=== PATIENT | male | born 2000 | race Caucasian/White ===

== ENCOUNTER 2024-03-29 11:20 | Outpatient (OUT) | payer BC, SELFPAY ==
--- NOTE | 2024-03-29 | XR_ITS ---
The [address] [address] Patient Name: NALDO MARQUEZ MRN: [id number] date: 2000 Sex: M Assigned Patient Location: Current Patient Location: Accession/Order Number: [id number] Exam Date: 03/29/2024 11:27 Report Date: 03/30/2024 13:23 At the request of: MEERA HEATON Procedure: XR foot JESSICA min 3V EXAMINATION: XR foot JESSICA min 3V, XR ankle JESSICA min 3V HISTORY: BILATERAL FOOT PAIN COMPARISON: No relevant comparison available. FINDINGS: RIGHT FINDINGS: BONES: Slight valgus deviation at level of ankle joint. No fracture, dislocation, bone lesion. No joint space narrowing or asymmetry of the joint spaces. SOFT TISSUES: No visible soft tissue swelling. OTHER: Negative. LEFT FINDINGS: BONES: Slight valgus deviation at level of ankle joint. No fracture, dislocation, bone lesion. No joint space narrowing or asymmetry of the joint spaces. Slightly prominent plantar arch. SOFT TISSUES: No visible soft tissue swelling. OTHER: Negative. XR/XR foot JESSICA min 3V IMPRESSION: RIGHT CONCLUSION: No acute abnormality or significant degenerative changes. LEFT CONCLUSION: No acute abnormality or significant degenerative changes. Prominent arch. Electronically authenticated by: MINDI HERNANDEZ Date: 03/30/2024 13:23
--- NOTE | 2024-03-29 | XR_ITS ---
The [address] [address] Patient Name: NALDO MARQUEZ MRN: [id number] date: 2000 Sex: M Assigned Patient Location: Current Patient Location: Accession/Order Number: [id number] Exam Date: 03/29/2024 11:21 Report Date: 03/30/2024 13:23 At the request of: MEERA HEATON Procedure: XR ankle JESSICA min 3V EXAMINATION: XR foot JESSICA min 3V, XR ankle JESSICA min 3V HISTORY: BILATERAL FOOT PAIN COMPARISON: No relevant comparison available. FINDINGS: RIGHT FINDINGS: BONES: Slight valgus deviation at level of ankle joint. No fracture, dislocation, bone lesion. No joint space narrowing or asymmetry of the joint spaces. SOFT TISSUES: No visible soft tissue swelling. OTHER: Negative. LEFT FINDINGS: BONES: Slight valgus deviation at level of ankle joint. No fracture, dislocation, bone lesion. No joint space narrowing or asymmetry of the joint spaces. Slightly prominent plantar arch. SOFT TISSUES: No visible soft tissue swelling. OTHER: Negative. XR/XR ankle JESSICA min 3V IMPRESSION: RIGHT CONCLUSION: No acute abnormality or significant degenerative changes. LEFT CONCLUSION: No acute abnormality or significant degenerative changes. Prominent arch. Electronically authenticated by: MINDI HERNANDEZ Date: 03/30/2024 13:23
== END 2024-03-29 11:21 | disposition home or self-care (01) ==
LOC: EC 11:20
PROVIDERS: Visit Provider Podiatrist Foot & Ankle Surgery
DX: M25.572 Pain in left ankle and joints of left foot (principal); M25.571 Pain in right ankle and joints of right foot
CPT/HCPCS: 73610; 73630

== ENCOUNTER 2025-02-20 12:33 | Outpatient (OUT) | payer BC, SELFPAY ==
--- OUTSIDE RECORDS SUMMARY | 2024-05-10 05:15 | XMS_ITS ---
Author Organization The [facility] in [place] Address [address] [place] [address] Care Team Providers Care Banquet Lead Name Role Phone Jenifer Swartz Primary Care Provider Raymond Mosquera [phone] Allergies Allergen (clinical drug ingredient) Drug/Non Drug Allergy documented on EMR Reaction Allergy Type Onset Date Status amoxicillin Amoxicillin hives Drug Allergy Act jannet REASON FOR VISIT -6 Week Follow Up- Medications Medication SIG (Take, Route, Fr equency, Duration) Notes Start Date End Date Status Meloxicam 15 MG 1 tablet Orally Once a day for 30 days 03/29/2024 Active Social History Tobacco Use: Social History Observation Description Date Details (start date - stop date) Never Smoker NA - NA Tobacco Control (Standard) Question Answer Notes Tobacco use: Nonsmoker Vital Signs Weight 206 lbs 05/10/2024 Height 74 in 05/10/2024 Temperature 97.6 degrees Fahrenheit 05/10/20 24 Heart Rate 94 /min 05/10/2024 BMI 26.45 kg/m2 05/10/2024 Oximetry 97.6 % 05/10/2024 Encounters Encounter Location Date Provider Diagnosis The [facility] [place] (PODIATRY) [address] [place] [address] [place] [address] 05/10/2024 Raymond Moreland Achilles tendinitis, left leg M76.62 ; Primary osteoarthritis, right ankle and foot M19.071 ; Other acquired deformities of right foot M21.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 He is doing quite well at the present time with wearing the ASO ankle brace and meloxicam as needed. He does have some calf pain and he describes it as feeling like a cramp. I believe this is secondary to his equinus versus calf strain. I recommended home stretching program and a handout was provided as well as a prescription for physical therapy.He will call for refills for meloxicam if needed and will follow-up in 3 months or as needed 05/10/2024 Primary osteoarthritis, right ankle and foot (ICD-10 - M19.071) 05/10/2024 Other acquired deformities of right foot (ICD-10 - M21.6X1) 05/10/2024 Other acquired deformities of left foot (ICD-10 - M21.6X2) Plan Of Treatment Treatment Notes Assessment Notes Achilles tendinitis, left leg Patient is a active 24-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 He is doing quite well at the present time with wearing the ASO ankle brace and meloxicam as needed. He does have some calf pain and he describes it as feeling like a cramp. I believe this is secondary to his equinus versus calf strain. I recommended home stretching program and a handout was provided as well as a prescription for physical therapy.He will call for refills for meloxicam if needed and will follow-up in 3 months or as needed Progress Notes * JIMMY GayOB:2000 (24 yo M)Acc No.[id number]:05/10/2024 Follow Up Patient: Paul LEGGETTJIMENASanford Provider: Diallo Moreland DPM, MS :2000 A ge:24 Y S ex:Male Date:05/10/2024 Address:[address] [place] [address], [id number] Pcp:Jenifer Swartz Check In:09:12 AM MUNIRCheck O ut:09:46 AM EST Subjective: * Chief Complaints: * - 6 Week Follow Up- * HPI: G eneral: Paient in office today to follow up of left achilles pain and right foot/ankle pain. Patient is c/o left calf feeling tight and achey. He c/o of right foot feeling stiff. HE is currently only using the ASO brace on his right ankle when he is playing football. He started taking the meloxicam and has has some relief of pain and swelling. He is not doing RICE therapy at home at this time. He states that hes looking for stretches to do at home rather than doing physical therapy. * Active Problem List M25.572 Pain in left ankle a nd joints of left foot Modified On:03/29/2024 Status:confirmed M25.571 Pain in right ankle and joints of right foot Modified On:03/29/2024 Status:confirmed M19.071 Primary osteoarthrit is, right ankle and foot Modified On:03/29/2024 Status:confirmed M21.6X1 Other acquired defor mities of right foot Modified On:03/29/2024 Status:confirmed Q66.89 Other specified kate enital deformities of feet Modified On:03/29/2024 Status:confirmed M21.6X2 Other acquired defor mities of left foot Modified On:03/29/2024 Status:confirmed * Medical History: * Surgical History: c lub feet tonsils * Hospitalization/Major Diagno stic Procedure: c lub feet tonsils * Family History: F ather: diagnosed with Unspecified heart disease. diabetes - grandparents, heart disease - grandmother, lung problems - grandmother. * Social History: T obacco Use: T obacco Control (Standard) T obacco use: N onsmoker * Medications: T akingMeloxicam 15 MG Tablet 1 tablet Orally Once a day Medication List reviewed and reconciled with the patientTaking Meloxicam 15 MG Tablet 1 tablet Orally Once a day Medication List reviewed and reconciled with the patient * Allergies: A moxicillin: hivesno[Allergies Verified] Objective: * Vitals: W t:206lbs, Ht: 74 in, Temp:97.6F, HR:94/min, BMI:26.45Index, Pain scale:31-10, Oxygen sat %:97.6%, Ht-cm: 187.96 cm, Wt-k.44 kg. * Examination: P odiatry Examination: SKIN: s kin intact, n o sign of infection. MUSCULOSKELETAL: N o pain on palpation. Ankle joint dorsiflexion bilaterally is to neutral but not past. Small thickening within the noninsertional area of the Achilles tendon. Hindfoot range of motion is limited bilaterally but not painful.? NEUROLOGICAL: l ight touch sensation intact, n egative tinel's sign. VASCULAR: P edal pulses palpable, C apillaryrefill is brisk to toe, D igitalhair intact. Assessment: * Assessment: 1. A chilles tendinitis, left leg - M76.62 (Primary) 2 . P rimary osteoarthritis, right ankle and foot - M19.071 3 . O ther acquired deformities of right foot - M21.6X1 4 .?Other acquired deformities of left foot - M21.6X2 Plan: * Treatment: * Procedure Codes: * * Sign off status: Completed Visit Status: C HK (Check Out) true * Provider: Diallo Moreland DPM, MS Date: 0 05/10/2024 Generated for Jane olsen/Nuria/Mireyaitting on: 0 02/20/2025 12:34 PM EDT History and Physical Notes * HPI (History of Present Illness) Category Sub-Category Detail Notes Category Not es General Paient in offic e today to follow up of left achilles pain and right foot/ankle pain. Patient is c/o left calf feeling tight and achey. He c/o of right foot feeling stiff. HE is currently only using the ASO brace on his right ankle when he is playing football. He started taking the meloxicam and has has some relief of pain and swelling. He is not doing RICE therapy at home at this time. He states that hes looking for stretches to do at home rather than doing physical therapy. Examination Category Sub-Category Detail Notes Category Not es Podiatry Examination SKIN: skin intact, no sign of infection MUSCULOSKELETAL: No pain on palpation . Ankle joint dorsiflexion bilaterally is to neutral but not past. Small thickening within the noninsertional area of the Achilles tendon. Hindfoot range of motion is limited bilaterally but not painful NEUROLOGICAL: light touch sensatio n intact, negative tinel's sign VASCULAR: Pedal pulses palpable, Capillary refill is brisk to toe, Digital hair intact
--- OUTSIDE RECORDS SUMMARY | 2025-02-20 10:50 | XMS_ITS | CCD ---
Author Organization [facility] Care Team Providers Care Calender Roll Operator Name Role Phone Charito Redd Primary Care Physician BRITTANI ROSARIO Admitting Unavailable ROSARIO PETER Attending Unavailable LAURIE, DR RONNELL Patricio Consulting Unavailable ROSARIO PETER Consulting Unavailable Julissa Maxwell Admitting Unavailab Julissa Easton Attending Unavailab MOHSEN Parry Attending Unavailable Julissa Maxwell Attending Unavailab Frantz Ye Attending Unavailable Allergies Allergy Classification Reported Allergen(s) Allergy Type Date of Onset Reaction(s) Facility (5 sources) Amoxicillin; Translations: [amoxicillin] Drug Allergy Weal (disorder) [facility] Comment on above: as a child (1 source) Amoxicillin Drug Allergy 3 [facility] Rep[facility] Medications Current Medications Medication Drug Class(es) Dates Sig (Normalized) Sig (Original) azithromycin 250 mg oral tablet (1 source) Macrolide Antimicrobial Start: 10-27-2024 Azithromycin 250 mg tablet Active 0 PO .COMPLEX October 27, 2024 1:00am For 250 mg dose pack: take 500 mg today (day 1), then 250 mg for 4 days (days 2-5) PO benzonatate 100 mg oral capsule (1 source) Non-narcotic Antitussive Start: 05-25-2023 End: 06-01-2023 take 1 capsule by mouth three times daily Tessalon 100 mg Cap 100 mg = 1 cap(s), Oral, TID, X 7 day(s), # 21 cap(s), Refills(s) 0, Pharmacy: [facility]/pharmacy #[id number], 188, cm, 05/25/23 17:51:00 EDT, Height/Length Dosing, 90, kg, 05/25/23 17:51:00 EDT, Weight Dosing Start Date: 05/25/23 Stop Date: 06/01/23 Status: Ordered dicyclomine hydrochloride 20 mg oral tablet (2 sources) Anticholinergic Start: 09-19-2022 take 1 tablet by mouth four times daily dicyclomine 20 mg Tab 20 mg = 1 tab(s), Oral, QID, # 120 tab(s), Refills(s) 0, Pharmacy: [facility] #[id number], 188, cm, 09/19/22 7:09:00 EST, Height/Length Dosing, 90, kg, 09/19/22 7:09:00 EST, Weight Dosing Start Date: 09/19/22 Status: Ordered doxycycline hyclate 100 mg oral capsule (2 sources) Tetracycline-class Drug Start: 05-25-2023 take 1 capsule by mouth twice daily doxycycline hyclate 100 mg Cap 100 mg = 1 cap(s), Oral, BID, # 20 cap(s), Refills(s) 0, Pharmacy: [facility]/pharmacy #[id number], 188, cm, 05/25/23 17:51:00 EDT, Height/Length Dosing, 90, kg, 05/25/23 17:51:00 EDT, Weight Dosing Start Date: 05/25/23 Status: Ordered Start: 05-22-2022 End: 05-29-2022 take 1 tablet by mouth every twelve hours doxycycline hyclate 100 mg Tab 100 mg = 1 tab(s), Oral, q12hr, May take with fluids and food., X 7 day(s), # 14 tab(s), Refills(s) 0, Pharmacy: [facility] #[id number], 188, cm, 05/22/22 10:08:00 EDT, Height/Length Dosing, 87.9, kg, 05/22/22 10:08:00 EDT, Weight Dosing Start Date: 05/22/22 Stop Date: 05/29/22 Status: Ordered naproxen 500 mg oral tablet (4 sources) Nonsteroidal Anti-inflammatory Drug Start: 02-26-2021 take 1 tablet by mouth twice daily naproxen 500 mg Tab 500 mg = 1 tab(s), Oral, BID, # 60 tab(s), Refills(s) 0, Pharmacy: [id number] [address], 190, cm, 02/26/21 15:52:00 EDT, Height/Length Dosing, 75.5, kg, 02/26/21 15:52:00 EDT, Weight Dosing Start Date: 02/26/21 Status: Ordered Problems Problem Classification Problem Date Documented Da te Episodic/Chronic Abdominal pain (1 source) Abdominal pain; Translations: [Unspecified abdominal pain] Onset: 09-19-2022 Episodic Acute bronchitis (2 sources) Acute bronchitis; Translations: [Acute bronchitis, unspecified] Onset: 05-25-2023 Episodic Gastrointestinal hemorrhage (1 source) Melena; Translations: [Melena] Onset: 09-18-2022 Episodic Other nutritional; endocrine; and metabolic disorders (2 sources) Overweight in adulthood with body mass index of 25 or more but less than 30; Translations: [Body mass index (BMI) 25.0-25.9, adult] Onset: 09-19-2022 Episodic Other upper respiratory infections (2 sources) Acute maxillary sinusitis, unspecified; Translations: [Acute maxillary sinusitis] Onset: 05-25-2023 Episodic Residual codes; unclassified (1 source) Body mass index 20-24 - normal; Translations: [Body mass index (BMI) 24.0-24.9, adult] Onset: 05-22-2022 Episodic Residual codes; unclassified (1 source) Patient encounter status; Translations: [Other specified health status] Onset: 05-22-2022 Episodic Unclassified (3 sources) Body mass index 20-24 - normal 05-22-2022 Unclassified (4 sources) Non-smoker 05-22-2022 Results Test Name Value Interpretation Reference Range Facility Family Medicine Office/Clini c Noteon 05-26-2023 Family Medicine Office/Clinic Note Chief Complaint EST cough, congestion HPI Staff Naldo is a 23 year old male here for a sinus infection started last Thursday 2 weeks ago, worsening symptoms for about a week ago, earache, cough, runny nose, congestion coughing so much hes threw up last night sore throat- has gotten better taken- cold meds History of Present Illness Reviewed and agree with above documented HPI by medical transcription radiology. Portions of this record may have been created with voice recognition artificial intelligence software, specifically [employer], [employer] and or [email or web address]. Substitutions may have occurred due to the inherent limitations of voice recognition and artificial intelligence software. Patient is a 23-year-old male who presents to [facility] care, sinus congestion, bilateral ear pain, nonproductive cough, sore throat, symptoms have about 2 weeks ago, worsening symptoms for about a week, patient states he has had a history of sinus infections, has been coughing, nonproductive, worse at night when he lays supine, states he has no history of asthma or bronchitis, has been taking jqfr-ltb-ttxsced cold medication without any relief, states his sore throat is much better, is able to eat and drink, has a sense of taste and smell intact, with some discomfort, but no difficulty swallowing. Patient denies any high fevers, chills, nausea or vomiting, worsening headache of his life, dizziness, worsening sore throat, difficulty swallowing, productive cough, worsening cough, chest pain, shortness of breath, or weakness. Review of Systems PHQ Score Initial Depression Screen Score: 0 Physical Exam Vitals & Measurements T: 36.7 ?C(Oral) HR: 74(Peripheral) BP: 124/76 SpO2: 99% HT: 74 in HT: 188 cm WT: 90 kg WT: 198 lb BMI: 25.46 General: Well developed, well nourished, in no acute distress, patient appears ill but not septic, no respiratory disorders, answers questions appropriately in complete sentences, and follows commands appropriately. Head: Normocephalic/atraum atic, respiratory infection with bilateral maxillary sinus tenderness and pressure with palpation, no frontal sinus tenderness, no facial swelling cellulitis. Eyes: Pupils equal, round, and reactive to light. Conjunctivae and sclerae normal, Ears: Bilateral TMs are bulging, no signs otitis media otitis externa, hearing is intact. Nose: No deformity, discharge, inflammation, or lesions Mouth: Mucous membranes moist. Normal oropharynx, and posterior pharynx without lesions or exudates. Tongue normal Neck: Neck supple. No masses or palpable cervical nodes. Trachea midline. Lungs: Normal respiratory effort and clear to auscultation throughout, no wheezing, no rales, crackles, or decreased breath sounds were noted on examination. Cardio: regular rate and rhythm, no murmur Extremity: Patient is able to move all 4 extremities equally without any pain or weakness. Neurologic: Grossly normal Skin: No rashes, ulcerations, or suspicious lesions Lymph Nodes: no lad Mental Status: alert, active Assessment/Plan Patient declined COVID-19 and strep throat swabs at this time. No breathing treatment or imaging is indicated at this time. 23-year-old male presented to [facility] care, for acute maxillary sinusitis, acute bronchitis, symptoms started greater than 2 weeks ago, worsening symptoms for the past week, patient did appear ill but not septic, no respiratory disorder or difficulty swallowing is noted on examination. No facial swelling or cellulitis. Patient was given scription for doxycycline, given work excuse note, instructed continue taking lohs-pnt-nusbxnk medication for any fevers or headache, drink plenty water stay hydrated, and patient agree with the plan. 1. Acute maxillary sinusitis (J01.00: Acute maxillary sinusitis, unspecified) See above Ordered: doxycycline, 100 mg = 1 cap(s), Oral, BID, # 20 cap(s), Refills(s) 0, Pharmacy: [facility]/pharmacy #[id number], 188, cm, 05/25/23 17:51:00 EDT, Height/Length Dosing, 90, kg, 05/25/23 17:51:00 EDT, Weight Dosing 2. Acute bronchitis (J20.9: Acute bronchitis, unspecified) See above Ordered: benzonatate, 100 mg = 1 cap(s), Oral, TID, X 7 day(s), # 21 cap(s), Refills(s) 0, Pharmacy: [facility]/pharmacy #[id number], 188, cm, 05/25/23 17:51:00 EDT, Height/Length Dosing, 90, kg, 05/25/23 17:51:00 EDT, Weight Dosing 3. BMI 25.0-25.9,adult (Z68.25: Body mass index [BMI] 25.0-25.9, adult) The standard range for ages 18 and older is >=18.5 and < 25 kg/m2. Your BMI today was above this range, this falls in the overweight to obese category and there are medical benefits to weight loss. We can offer counselling, referral, and/or medical support in addressing this problem. Your BMI and weight management will be followed at subsequent visits. Ordered: Body Mass Index (BMI) documented 3008F Follow-up With When Contact Information Charito Redd CNP Additional Instructions: Patient Education BMI for Adults Acute Bronchitis, Adult, Easy- (more content not included)... Normal [facility] Comment on above: Result Comment: Elec tronically Signed By: MOHSEN ARCE PA-C\.moisés\Date and Time Signed: 05/26/23 12:26 EDT Patient Educationon 05-26-20 Patient Education Infectious Disease Sinus Infection, Adult A sinus infection is soreness and swelling (inflammation) of your sinuses. Sinuses are hollow spaces in the bones around your face. They are located: ? Around your eyes. ? In the middle of your forehead. ? Behind your nose. ? In your cheekbones. Your sinuses and nasal passages are lined with a fluid called mucus. Mucus drains out of your sinuses. Swelling can trap mucus in your sinuses. This lets germs (bacteria, virus, or fungus) grow, which leads to infection. Most of the time, this condition is caused by a virus. What are the causes? ? Allergies. ? Asthma. ? Germs. ? Things that block your nose or sinuses. ? Growths in the nose (nasal polyps). ? Chemicals or irritants in the air. ? A fungus. This is rare. What increases the risk? ? Having a weak body defense system (immune system). ? Doing a lot of swimming or diving. ? Using nasal sprays too much. ? Smoking. What are the signs or symptoms? The main symptoms of this condition are pain and a feeling of pressure around the sinuses. Other symptoms include: ? Stuffy nose (congestion). This may make it hard to breathe through your nose. ? Runny nose (drainage). ? Soreness, swelling, and warmth in the sinuses. ? A cough that may get worse at night. ? Being unable to smell and taste. ? Mucus that collects in the throat or the back of the nose (postnasal drip). This may cause a sore throat or bad breath. ? Being very tired (fatigued). ? A fever. How is this diagnosed? ? Your symptoms. ? Your medical history. ? A physical exam. ? Tests to find out if your condition is short-term (acute) or long-term (chronic). Your doctor may: ? Check your nose for growths (polyps). ? Check your sinuses using a tool that has a light on one end (endoscope). ? Check for allergies or germs. ? Do imaging tests, such as an MRI or CT scan. How is this treated? Treatment for this condition depends on the cause and whether it is short-term or long-term. ? If caused by a virus, your symptoms should go away on their own within 10 days. You may be given medicines to relieve symptoms. They include: ? Medicines that shrink swollen tissue in the nose. ? A spray that treats swelling of the nostrils. ? Rinses that help get rid of thick mucus in your nose (nasal saline washes). ? Medicines that treat allergies (antihistamines). ? Xnrb-aej-plylykj pain relievers. ? If caused by bacteria, your doctor may wait to see if you will get better without treatment. You may be given antibiotic medicine if you have: ? A very bad infection. ? A weak body defense system. ? If caused by growths in the nose, surgery may be needed. Follow these instructions at home: Medicines ? Take, use, or apply catb-cpq-nubjbsf and prescription medicines only as told by your doctor. These may include nasal sprays. ? If you were prescribed an antibiotic medicine, take it as told by your doctor. Do not stop taking it even if you start to feel better. Hydrate and humidify ? Drink enough water to keep your pee (urine) pale yellow. ? Use a cool mist humidifier to keep the humidity level in your home above 50%. ? Breathe in steam for 10?15 minutes, 3?4 times a day, or as told by your doctor. You can do this in the bathroom while a hot shower is running. ? Try not to spend time in cool or dry air. Rest ? Rest as much as you can. ? Sleep with your head raised (elevated). ? Make sure you get enough sleep each night. General instructions ? Put a warm, moist washcloth on your face 3?4 times a day, or as often as told by your doctor. ? Use nasal saline washes as often as told by your doctor. ? Wash your hands often with soap and water. If you cannot use soap and water, use hand clay preparation supervisor. ? Do not smoke. Avoid being around people who are smoking (secondhand smoke). ? Keep all follow-up visits. Contact a doctor if: ? You have a fever. ? Your symptoms get worse. ? Your symptoms do not get better within 10 days. Get help right away if: ? You have a very bad headache. ? You cannot stop vomiting. ? You have very bad pain or swelling around your face or eyes. ? You have trouble seeing. ? You feel confused. ? Your neck is stiff. ? You have trouble breathing. These symptoms may be an emergency. Get help right away. Call 911. ? Do not wait to see if the symptoms will go away. ? Do not drive yourself to the hospital. Summary ? A sinus infection is swelling of your sinuses. Sinuses are hollow spaces in the bones around your face. ? This condition is caused by tissues in your nose that become inflamed or swollen. This traps germs. These can lead to infection. ? If you were prescribed an antibiotic medicine, take it as told by your doctor. Do not stop taking it even if you start to feel better. ? Keep all follow-up visits (more content not included)... Normal [facility] Patient Letter FTon 2022 Patient Letter [facility] [address] [place] [address], [facility] [place] [address] May 25, 2023 NALDO MARTINES [address] [place] [id number] : 2000 Please excuse NALDO MARTINES from work . Date and/or Time of Absence: From: 05/25/23 May return to work on: 05/27/23 Restrictions: None Comments: Please excuse due to an acute illness. Provider Signature: Mohsen Arce PA-C [facility] [address] [facility]. [facility] [place] [address] [facility] Provider Letteron 09-25-2022 Provider Letter September 25, 2022 NALDO MARTINES [address] [place] [id number] NALDO MARTINES 2000 Dear Naldo, We have been trying to reach you with no success. It is important that you return our call regarding your referral by Cedric to see Dr. Santa upon receiving this letter. Also, at the time of your call, please provide us with your current information. Thank you for your prompt attention to this matter. Sincerely, [facility]. Normal [facility] Coding Summary.on 09-23-2022 Coding Summary. [id number] Gh0bWw+PGhlYWQ+PE1FV ZOtM00mnMNyaU7VW4xYP H6ZWQPEHOUHWS3OJH5mi HP4PNvhM5TbnyOp LrujwBRgGT25HWy0VFF2 bHksCWjzbW0qhAWcU7d2 IvKuOU94kM72MFwaWFOp NuN0DiQnypjfhHXo L8jdRuTopDYaKnw+PHRh YmxlIHdpZHRoPScxMDAl JrGobOnbBE1oNc0qBTAc LWNvbGxhcHNlOiBj t5maYMYeQHhoED9siGsn E7VzkID4XUMcx1g5Vi98 dHI+EGLqQHZ9tAmwJZcp j022ElVlp3tsJAR0 gKGzFOkfOVG3D40yk4N1 SSHwAJCjSYL8cNN3sC6f tJqiyindF4BmmJDuZmI9 CNQ8gXQrhU1caJrx yyverS8hVtv+B54YUU2D VDSOUR1UQyq5I4DbMbza dHI+CU77CERkLC92jJQs nUMbp2bhjQd2LfXx UPMxGYW4nKxfBFidn6Uz OLAcP38ekVDif2D7BYAf vAnbsAFmLySzfBE7fZ0q ICayhaban8wezymb Pahyd6zkti67mF77W40a ZQymFZKzYZN2DHKsRAEz wPfyzu0ubC6sEp7+IDxj w9osx1kppAa1FvVp TISlhkQioFxgBWC8g3Hy Hi08R9MydRmpw7JxMjd0 wd22bYPjp9L0lKX2EIec EQXqoK3pCRuvRrO3 PHFgSpEnbR08kNQbTYaf Ub4axDzcjZxcPB1rHXXe ustwUYLchF6mRSSpjWGy sYizXP7sMFMuleaw m960SpBaLXL3YTFgkHEa J3NppC8nPlGkLENqWNLt E0KshRJkRBcuX846BTeb ReA9KNOvtnQsA0Wl LMQllUieYrH6a5H7Rt2T k7QdwfqdWQG2VVssUMOw TvKfFwGwUcN3D0XqFfn6 TDAkiRxjON3yJ5Yq BIYwxbkdkrkekWY9SMCi KFFjuG91tOCnUZlqDu1f t7M1y929SQRvWEXfmD03 Qb7izBnkLYJywHML xS3rkiqzd2kspeomKpRk EILhGFl7IPw3NZCerLvj DePmSHK3BmH7KEY5mFBy sG6unVulyxzdxC6l Oyc+R71skZ2rOMH7TOC9 hwzsKYDjdjXtQJ44QD98 A9SwGzmteREezKD+PGRp kkUsvVitLI4wRkWn v1zzj4CfNHpbF5OrSIDo RYqlZiq0SCKbWXL7bAB4 tG1kKLYrWTuhx5A7nCZ2 R7IopnHmrd3yq7uz XJWqWGndX40lmGOln6L9 JCNysIV5FLHzjBggUxBt oE16Qby+MCCgbSmao2Jl Wbywo9llj4nzeZa0 IjMwJSIgdmFsaWduPSJ0 c0MyQk79M98kWKysEIOe KWWrGSKnHSGdyUsqce9z wW9mMj8+PGNvbCB3 tYD6zP8wDPIwRmI9EScp H525YxYcnTAbMlrij0cy a0friIm0OqEwEWEudrPc wTmzOZL2i6MmXi52 T00jFBxcTBUeSAJaXHUb OLWqbWkhlp4haZ5pCe5+ ZA1mh2hpfm17cU81bQI+ SWSpCDN2mBqdZQdx HHJpwV4sVJvyWcT2NAQo UpBgzK81uIOyGAjpXk1i kLoyqRxjDW8qANZjneuk k028ZhQpv5erWBOi sCOuHMwvIQC5K62pb4B1 QBXcZBJmETI4mFR0dC3w bGlnbjogbGVmdDsgdmVy sGnqUDvvHRtfE023 IHRvcDsnPlBhdGllbnQg EzZnOIv9O4XgPuc8HREo fBfiPE8unWWhRDcxBj3g nUbrpHomUB0lQNCn srjts476SdGfd8sqVUYk hLZwUOemUNH1B95cn0D4 VOAvXREuOSU6cSK6bC8x bGlnbjogbGVmdDsg hlDntQgrWVsiURmcN730 IHRvcDsnPkJpcnRoIERh sDW7KY70HS80gDMqp5K8 tZS6Q5OhXXMqrlyn gdnkxQO5EJOqDYIjfJ90 Tg1jnKifNn5gEUQvAGZ5 SQTzkEYdI8SuoJ3sQmPg IUBsNUOvF4ZcyURb CIqwG320WRmpVwZ5IWGv zxXrY9ZtWSMtcTmmSuO2 j5S8Ns1OI1Z3XQ24HE14 sISlv2Y5fKN0C4Hr QXIclgzbwqfpfTQ3IGVp FFRaiC10Av8niMtaMv5l LKYvFQE2BOIdlPQiV9Ea iK1pTzEfSXVpEMUg M7VbgGPrNVxqS061LOtb PbG8DKYwsnFlT0EtNISa hZqlIaF4o9K3Vq2IOHq5 OS67IY88xDDze3U6 wFU7S5UxKATcumjudrfn gSO9PRMpKGLaiG98Zp4o yUskGo4jMARlOOQ7IULc yVXgK5RlyS2uSmRq IOEhEXXxL6TqnDLkUEbb G923ALluQaJ4BHFvrzXi I3CdSTJycTizKyM1e6T8 Re6SPNYgOP49WWG8 eVI1AG90AS05Y2WjMayi dGFibGU+PHRhYmxlIHdp ZHRoPScxMDAlJyBzdHls CJ0yWa3eIZQaVXWu xHmbpKCsIdDre7pwBJZa TFqnSO9nvRfeA7AazQT7 TFUmx5r2Zz94L66bJ5Vu dXA+JULfzBV6fWY2 dH6mPuScUvJ2LKxbM542 NpZlsLYjUjroe8ouu6nh eBy4UzR2ARIggnCkyOio LCJ0y6IuWe26J10s IHdpZHRoPSIxNSUiIHZh kTaqev4gbI8fMa4+PGNv yTF8iDA2kU3hWuYtKjZ3 QIcnP172IiOqmLFw Nhoyv0cok3vpdXy2HcZr YVSztgAozObpYEH1j4Ob Oh59H5CniMdlm4GsZlh2 ra58sSUfk0M8dLK1 M7ScRKBnryxucUWvbCue CF8mFBQukytxYYNiwC1a ACMtH6x0IzZrGjM2GHsq L8TwpbS1WJIpqLPi ARdkIRV3F54nj0W3HZQe ZXZjCQP9nLU7rL5tbJik bjogbGVmdDsgdmVydGlj LXkbBOciF115TRPe bUjnZYEzxQ0rOOWhkHCw zEmsRP2dZVZbyvhzGxVF HXIXSLcXGAGBO6gGKC63 YG53cUBqh0A2oFF5 U9DyWGMdvlzsufzavCU5 LRAeFQZksB19tTWrWFhe Se5wv9T7g710ZAPpYHIc pD72Go6apFtzBWUw lJMBiV0gnfhad7fvfgsc BwYcEWEgMOp3ZEg9EZDe bIksBuJnCLY0NkZ5DGZ9 eDRdlR0dfIngxhvb nA0gFrv+MDUvMjQvMTk5 ODwvdGQ+RESlTXA7yGpq DIbbGPPdvA7sWJQyX9s2 RuFyFsP1IHynR7Ia BPZijbjyEm77iG6xScDy IqJ4LKunT8JvseO5EEEx qLDyXMbvZVO4J97fx4T4 JSNlWWDrXCC5zIZ2 bV6uzDupzmygbCFxhAzd ixWhxKhsKTzhGAynN691 LNTdnSiuTsN3XBxdHLJc YT01JC53kOKbc4W6 kQI8W5DsYLWcgsonzjvr iTC5WPZiIWMrxO99cNRz OGkiEn4us6Q6o897ZFIm ELJrvN86Au9flKdc LRNeqGRVsB1wvofuj3ad vgjhOeAqMTBaRUx0VAd9 OMUwnKmwHnNbLFZ5JcY2 CUZ2fWOndQ2iiStp tlzfsJ2hDoq+TWFsZTwv dGQ+ZOEbFMZ8eCnhZRhw RITkuN3gBCQzO8p0TzGu ZwG5PTfxZ6TjGXOf akzjHx89vO0jElDoEvT6 MPwtP8RmitU2HWVgxXWq ZJskRPW2K37hz4G4RTWk EPZqJXU2jDN3jG9u bGlnbjogbGVmdDsgdmVy oOqeWJiqVIyvZ215YVKx aOfxFt89qQRwkKafdbJ8 Y6DpKrwuzUA+PC90 UAZlKW53rIKibUGzt5ky sXf7JuZcCHHiRBA5xTwt FUrcm7ObDULuA68tvVUd n9M7NSMmjRbblSLw OlOfwDH4bP9oUUbuqdzs b8numzsuDynvk1dmps91 eE51X87nAShhKWByCRPh WSKbLZMpjMdixq1h lR4oCk0+APJdbNO9aGB7 wE2uUwEoReV8YLvdI957 UdGsyCFtMvaqb5smq1ym uLc0NaThNINiwpJl tRuxVTL3s5JxDx45R66k IHdpZHRoPSIyMCUiIHZh qYgvbm1meZ4eBp3+PC9j t4dbea26jZ19gNX+ DRUwLTF9aLlkOXjtFQCe tC2kZAvjZnL5PYCiFfFz gG49tCIfAXxsBu0mcIkv vKrdQA9aNFCougwb c911DkHua7cmAIKhjUBs ICsiLYF2N50gh3Q3KYTl CJQsDQY4oDR2xT2ysLck bjogbGVmdDsgdmVy iXccVPfrVYtvM130ODPz aClkTfIwqOCjZ5zsmxKA NC5eDladuMD+PHRkIHN0 pKfnYGkgAWSesZ7u YSIxE8u3ZtFlByO9YIms Z8GcbyX4XISeeZBkKLOa nAJXuW9vtonln1gxwntk EgNjWPHdRIm8SBj3 JDDzpCwlMuMiOZX2NxS3 OIJ7eIQztB4hwExfsqct tQ5oOss+RklOOjwvdGQ+ EYQqNDX4zMqaHRzp MBJtkO4fSIJdO9n2DyRv AuB2TAneX7IzkqU1TNPp nNYyGQOifRSQuJ7vhjqc i2pcgfbzUqQgBRFp ZXw6ZYt9ZQPqqTuhOjHq RFV7DiX7KQM3iOKtwA8o qBapmbfbeP3qJvq+TVJO OjwvdGQ+PHRkIHN0 yFeoVYhiGQUbjG4kTAMf A9n5NgCvPsS4TLbwA8Uj mjA4LFIgvWJlTTGqxYJA yH1dwyrde9znkazr LbTeFNDzQUi5RVi9XIYs vPkfJpDnCLK5TwQ2INW3 fUGroA4lnHiejyogbU7d Oyc+ISA2ZKO0YX17 FJ70Q6RoLfgxsAUavWM+ PHRhYmxlIHdpZHRoPScx VKXwWeYclPtyZQ8eUy9u ZGVyLWNvbGxhcHNl OiBj (more content not included)... Normal [facility] Celiac Disease Comprehensive on 09-22-2022 Endomysium IgA Ql (S) Negative Invalid Interpretation Code Negative [facility] Comment on above: Performed By: #### 2 [id number], [id number], [id number], [id number], [id number], 6309852, [id number], [id number] #### [facility] [address] [place] [address] Gliadin peptide IgA Qn (S) 5 unit(s) Invalid Interpretation Code 0- [facility] Comment on above: Result Comment: Nega tive 0 - 19 Weak Positive 20 - 30 Moderate to Strong Positive >30 Performed By: #### 2 [id number], [id number], [id number], [id number], [id number], 5519389, 4435794, 0822381, 3545106, [id number], [id number] #### [facility] [address] [place] [address] Gliadin peptide IgG Qn (S) 2 unit(s) Invalid Interpretation Code 0- [facility] Comment on above: Result Comment: Nega tive 0 - 19 Weak Positive 20 - 30 Moderate to Strong Positive >30 Performed By: #### 2 [id number], [id number], 6366588, 38888581, 9491378, 7769236, 6994866, 6292228, 9552046, 4663152, [id number], [id number] #### [facility] [address] [place] [address] IgA [Mass/Vol] 186 mg/dL Invalid Interpretation Code 91-386 [facility] Comment on above: Result Comment: [facility] [address], [place] [id number] PhD Fany Gaspar Performed By: #### 2 746653, [id number], 87050522, 6803427, 47244775, 9008204, 9938017, 6244619, 1565395, 7978347, 2616788, [id number], [id number] #### [facility] [address] [place] [address] tTG IgA Qn (S) <2 Invalid Interpretation Code 0-3 [facility] Comment on above: Result Comment: Nega tive 0 - 3 Weak Positive 4 - 10 Positive >10 Tissue Transglutaminase (tTG) has been identified as the endomysial antigen. Studies have demonstr- ated that endomysial IgA antibodies have over 99% specificity for gluten sensitive enteropathy. Performed By: #### 2 424174, 4071115, [id number], 6706959, 82199559, 0207451, 2321895, 8871959, 9363825, 5419006, 3624992, [id number], [id number] #### [facility] [address] [place] [address] tTG IgG Qn (S) <2 Invalid Interpretation Code 0-5 [facility] Comment on above: Result Comment: Nega tive 0 - 5 Weak Positive 6 - 9 Positive >9 Performed By: #### 2 411371, 5560427, 15895608, 5051792, 21768156, 1219399, 9069873, 5201031, 9094101, 7707316, 2098004, [id number], [id number] #### [facility] [address] [place] [address] Reminderson 09-22-2022 Reminders - From: Alissa Julissa DIEGO To: NPC - Clinical; Sent: 09/22/2022 08:15:50 EST Show up: 09/22/2022 08:15:00 EST Subject: Ambulatory Reminder Due Date/Time: 09/23/2022 08:14:00 EST Please call pt and let him know that his labs all came back normal. Therefore, I don't think IBS is the cause of his bleeding. He should f/u with GI for endoscopy to find the cause of the bleeding and take the medication I prescribed. Thank you! Results: Date Result Name Value Ref Range 09/19/2022 12:38 Antigliadin IgA 5 unit(s) (0-19 - ) 09/19/2022 12:38 Antigliadin IgG 2 unit(s) (0-19 - ) 09/19/2022 12:38 Endomysial Antibody IgA Negative (Negative - ) 09/19/2022 12:38 IgA Quant 186 mg/dL (90-386 - ) 09/19/2022 12:38 t-Transglutaminase IgA <2 unit/mL (0-3 - ) 09/19/2022 12:38 t-Transglutaminase IgG <2 unit/mL (0-5 - ) Left vm for patient to return call. Patient notified and verbalizes understanding. Normal [facility] T3 Freeon 09-20-2022 Free T3 [Mass/Vol] 4.2 pg/mL Invalid Interpretation Code 2.0-4.4 [facility] Comment on above: Result Comment: Perf ormed at: [facility] [address] [id number] PhD Fany Gaspar Performed By: #### 2 037959, 1318922, 81955251, 6869579, 84134449, 3457873, 9233918, 7850137, 5763817, 2254151, 3804785, 7457225898, 68713056 #### [facility] [address] [place] [address]123 Amylaseon 09-19-2022 Amylase [Catalytic activity/Vol] 53 U/L Normal 25-157 [facility] Comment on above: Performed By: #### 2 552853, 9281142, 51335087, 3883185, 47143889, 3430439, 8527987, 2109344, 6224402, 9671975, 3350068, 9641857864, 45908812 #### [facility] [address] [place] [address] 32565 Auto Diffon 09-19-2022 Basophils/100 WBC (Bld) 0.6 % Normal 0.0-2.0 [facility] Comment on above: Order Comment: Order Added by Discern Expert. Performed By: #### 2 052094, 0257738, 17883285, 8220653, 15637656, 0544102, 1999913, 1024014, 7285928, 8708711, 0845277, 1952437727, 39307335 #### [facility] [address] [place] [address]6042 Basophils/Leukocytes Auto (Bld) [Pure # fraction] 0.0 E9/L Normal 0.0-0.2 [facility] Comment on above: Order Comment: Order Added by Discern Expert. Performed By: #### 2 775813, 2754930, 24534096, 2420114, 43837505, 4608543, 5096715, 3213065, 6234683, 7929969, 9715434, 9486964449, 75721725 #### [facility] [address] [place] [address]2444 Eosinophils/100 WBC (Bld) 1.1 % Normal 0.0-8.0 [facility] Comment on above: Order Comment: Order Added by Discern Expert. Performed By: #### 2 821454, 4059545, 20508882, 2312359, 12387501, 0337151, 7381722, 1989290, 0749267, 3386116, 2160724, 0239437375, 17230260 #### [facility] [address] [place] [address] 21529 Eosinophils/Leukocyte s Auto (Bld) [Pure # fraction] 0.1 E9/L Normal 0.0-0.5 [facility] Comment on above: Order Comment: Order Added by Discern Expert. Performed By: #### 2 335437, 1908969, 43500708, 3376434, 14343635, 5893401, 4187393, 0745070, 5954392, 9333750, 0084220, 4599765278, 77911884 #### [facility] [address] [place] [address] Lymphocytes/100 WBC (Bld) 45.2 % Normal 14.0-50.0 [facility] Comment on above: Order Comment: Order Added by Discern Expert. Performed By: #### 2 731737, 9794428, 00810852, 9362133, 38438005, 2434684, 3326603, 9147686, 9811685, 7951872, 6070038, 1553806301, 47834295 #### [facility] [address] [place] [address] 06071 Lymphocytes/Leukocyte s Auto (Bld) [Pure # fraction] 3.0 E9/L Normal 1.0-4.0 [facility] Comment on above: Order Comment: Order Added by Discern Expert. Performed By: #### 2 512926, 8648831, 73059628, 7074988, 89316789, 1432492, 5261983, 4985528, 2935482, 8286474, 8259542, 5298379927, 16742514 #### [facility] [address] [place] [address] 08765 Monocytes/100 WBC (Bld) 7.0 % Normal 4.0-14.0 [facility] Comment on above: Order Comment: Order Added by Discern Expert. Performed By: #### 2 044804, 8771025, 62544251, 7008928, 40876416, 8318308, 7742727, 9487817, 2777197, 5223086, 8394132, 2006357506, 60742923 #### [facility] [address] [place] [address] 68418 Monocytes/Leukocytes Auto (Bld) [Pure # fraction] 0.5 E9/L Normal 0.2-1.0 [facility] Comment on above: Order Comment: Order Added by Discern Expert. Performed By: #### 2 665110, 0004575, 19637236, 8115913, 76388853, 5748935, 1764036, 4810070, 5351274, 8429997, 6808699, 4711041349, 60981136 #### [facility] [address] [place] [address] Neutrophils/100 WBC (Bld) 46.1 % Normal 36.0-75.0 [facility] Comment on above: Order Comment: Order Added by Discern Expert. Performed By: #### 2 350972, 8845792, 59236794, 4920527, 91626185, 3370608, 3559008, 5161443, 9771333, 7761948, 0456840, 0749934958, 63364210 #### [facility] [address] [place] [address] Neutrophils/Leukocyte s Auto (Bld) [Pure # fraction] 3.1 E9/L Normal 2.0-7.5 [facility] Comment on above: Order Comment: Order Added by Discern Expert. Performed By: #### 2 434076, 4844588, 58182609, 9118338, 25118528, 1663152, 9373019, 7017797, 9109898, 5404008, 5811703, 3163108060, 33666856 #### [facility] [address] [place] [address] Bili Directon 09-19-2022 Bilirubin.direct [Mass/Vol] mg/dL Normal 0.1-0.4 [facility] Comment on above: Order Comment: Order Added by Discern Expert. Performed By: #### 2 863557, 3376120, 80444634, 4125645, 42529032, 3579560, 2472067, 6004243, 9112448, 6549269, 5777172, 2912601442, 81863955 #### [facility] [address] [place] [address] CBC w/ Auto Diffon 3 Erythrocyte distribution width (RBC) [Ratio] 12.7 % Normal 10.9-14.2 [facility] Comment on above: Performed By: #### 2 380603, 1759055, 51907583, 9736566, 74987748, 4697073, 2030004, 8739991, 9953511, 6616312, 9823616, 3162460509, 52400951 #### [facility] [address] [address] Hematocrit (Bld) [Volume fraction] 43.3 % Normal 37.7-49.0 [facility] Comment on above: Performed By: #### 2 851503, 1463695, 81286920, 4849913, 40636117, 4791256, 3539971, 1565434, 6560538, 6939422, 9319044, 2344079006, 09555724 #### [facility] [address] [address] Hemoglobin (Bld) [Mass/Vol] 14.4 g/dL Normal 13.5-17.5 [facility] Comment on above: Performed By: #### 2 568237, 0836858, 81450610, 7956911, 13058512, 6385471, 9164428, 0459315, 7055577, 9667988, 9175418, 5959309735, 97994643 #### [facility] [address] [place] [address] MCH (RBC) [Entitic mass] 27.3 pg Normal 27.0-34.0 [facility] Comment on above: Performed By: #### 2 745371, 1709967, 31868786, 6511591, 90984408, 4231723, 1753764, 6597250, 4602859, 3743269, 7400153, 6837463201, 70600248 #### [facility] [address] [place] [address] MCHC (RBC) [Mass/Vol] 33.2 g/dL Normal 31.4-36.0 [facility] Comment on above: Performed By: #### 2 297261, 8404877, 30717494, 2308480, 08999150, 1713211, 2970940, 1254555, 5234912, 2068780, 5851379, 1648848596, 03231248 #### [facility] [address] [place] [address]281 MCV (RBC) [Entitic vol] 82.3 fL Normal 80.0-100.0 [facility] Comment on above: Performed By: #### 2 018215, 2376203, 53011765, 5098124, 96698843, 3288192, 4182851, 6643594, 5491546, 8206324, 5669979, 6085761437, 72544796 #### [facility] [address] [place] [address] 21357 Platelet mean volume (Bld) [Entitic vol] 7.2 fL Normal 6.4-10.8 [facility] Comment on above: Performed By: #### 2 679161, 8911328, 29115271, 0213586, 25952000, 8891587, 0171812, 6460475, 9900425, 0990383, 7840911, 7756961413, 15857439 #### [facility] [address] [place] [address]41 Platelets (Bld) [#/Vol] 332.0 E9/L Normal 150.0-500.0 [facility] Comment on above: Performed By: #### 2 612342, 5958020, 94682551, 5345407, 72211013, 2951046, 8436359, 2393524, 6688313, 0342661, 9181966, 1736659683, 34315652 #### [facility] [address] [place] [address] 69334 RBC (Bld) [#/Vol] 5.3 E12/L Normal 4.3-5.9 [facility] Comment on above: Performed By: #### 2 048321, 4402960, 69481721, 6852790, 12962730, 7394808, 2983792, 9281903, 8647122, 5072389, 1649809, 5180824862, 62716146 #### [facility] [address] [place] [address] WBC corrected for nucl RBC Auto (Bld) [#/Vol] 6.7 E9/L Normal 4.0-11.0 [facility] Comment on above: Performed By: #### 2 738865, 6002094, 67992737, 5945634, 01428672, 4300939, 9400472, 2233988, 6342688, 5813594, 7652259, 2092391698, 91575545 #### [facility] [address] [place] [address] CHEMISTRYOrdered By: SYSTEM SYSTEM on 09-19-2022 Albumin [Mass/Vol] 5.0 g/dL Normal 3.3 - 5.0 gm/dL [facility] Albumin/Globulin [Mass ratio] 1.7 {ratio} Normal 1.1 - 2.2 [facility] ALP [Catalytic activity/Vol] 51 [iU]/d Normal 21 - 98 Int._Unit/L [facility] ALT No additional P-5'-P [Catalytic activity/Vol] 28 [iU]/d Normal 6 - 46 Int._Unit/L [facility] Amylase [Catalytic activity/Vol] 53 U/L Normal 25 - 157 unit/L [facility] Anion gap [Moles/Vol] 13 mmol/L Normal 6 - 16 mEq/L [facility] AST [Catalytic activity/Vol] 22 [iU]/d Normal 5 - 43 Int._Unit/L [facility] Bilirubin [Mass/Vol] 0.8 mg/dL Normal 0.0 - 1 .1 mg/dL [facility] Bilirubin.direct [Mass/Vol] mg/dL Normal 0.1 - 0.4 mg/dL [facility] Calcium [Mass/Vol] 9.9 mg/dL Normal 8.9 - 11. 1 mg/dL [facility] Chloride [Moles/Vol] 101 mmol/L Normal 101 - 1 11 mmol/L [facility] CO2 [Moles/Vol] 29 mmol/L Normal 21 - 31 mmol/L [facility] Creatinine [Mass/Vol] 0.9 mg/dL Normal 0.5 - 1.3 mg/dL [facility] CRP [Mass/Vol] 1.0 mg/dL Normal <=1.9mg/dL [facility] Remis ol Free T4 [Mass/Vol] 0.97 ng/dL Normal 0.58 - 1. 64 ng/dL [facility] GFR/1.73 sq M.predicted among blacks MDRD (S/P/Bld) [Vol rate/Area] mL/min/1.73 m2 Normal >=59mL/min/1. 73 m2 [facility] Chem S GFR/1.73 sq M.predicted among non-blacks MDRD (S/P/Bld) [Vol rate/Area] mL/min/1.73 m2 Normal >=59mL/min/1. 73 m2 [facility] Chem S Globulin (S) [Mass/Vol] 3.0 g/dL Normal 1.4 - 4.0 gm/dL [facility] Glucose [Mass/Vol] 93 mg/dL Normal 55 - 199 mg/dL [facility] Lipase [Catalytic activity/Vol] 32 U/L Normal 13 - 58 unit/L [facility] Potassium [Moles/Vol] 4.0 mmol/L Normal 3.5 - 5.3 mmol/L [facility] Protein [Mass/Vol] 8.0 g/dL High 6.0 - 7.8 gm/dL [facility] Sodium [Moles/Vol] 139 mmol/L Normal 135 - 145 mmol/L [facility] TSH Qn 2.21 m[IU]/L Normal 0.34 - 5.60 mcIU/mL [facility] Urea nitrogen [Mass/Vol] 11 mg/dL Normal 5 - 21 mg/dL [facility] Urea nitrogen/Creatinine [Mass ratio] 12 mg/mg Normal 10 - 20 [facility] CMPon 09-19-2022 Albumin [Mass/Vol] 5.0 g/dL Normal 3.3-5.0 [facility] Comment on above: Performed By: #### 2 264871, 5488508, 70821810, 7347424, 59958880, 0634132, 0389671, 2884636, 9607038, 7455391, 1048116, 4992020217, 20834887 #### [facility] [address] [place] [address] Albumin/Globulin (S) [Mass conc ratio] 1.7 Normal 1.1-2.2 [facility] Comment on above: Performed By: #### 2 510864, 9587239, 71738971, 0744429, 03579463, 8363050, 4417495, 2622244, 4837642, 3844350, 4088846, 1785516080, 11809152 #### [facility] [address] [place] [address] ALP [Catalytic activity/Vol] 51 Int._Unit/L Normal 21-98 [facility] Comment on above: Performed By: #### 2 647927, 6149052, 37667174, 0894037, 22722038, 6416724, 6828029, 9431449, 8183051, 6136896, 3510770, 9380728196, 96433747 #### [facility] [address] [place] [address] ALT No additional P-5'-P [Catalytic activity/Vol] 28 Int._Unit/L Normal 6-46 [facility] Comment on above: Performed By: #### 2 951785, 9674918, 03984002, 4355475, 53733386, 8944532, 1881694, 1617706, 2985107, 6194899, 0446253, 4018212748, 05303059 #### [facility] [address] [place] [address] Anion gap [Moles/Vol] 13 mmol/L Normal 6-16 [facility] Comment on above: Performed By: #### 2 946370, 4499623, 35911074, 8414700, 74635244, 0941274, 2725714, 4198886, 3643271, 5353191, 6924679, 1458118822, 83442796 #### [facility] [address] [place] [address] AST [Catalytic activity/Vol] 22 Int._Unit/L Normal 5-43 [facility] Comment on above: Performed By: #### 2 262131, 2021596, 44742463, 2721273, 74613653, 7769422, 7124167, 0691923, 6835696, 3728987, 7541065, 4965804733, 08817614 #### [facility] [address] [place] [address] Bilirubin [Mass/Vol] 0.8 mg/dL Normal 0.0-1.1 [facility] Comment on above: Performed By: #### 2 380700, 2672428, 41019640, 5483554, 97425468, 7560027, 8356004, 0930886, 3208873, 1688172, 7573775, 6551685880, 89369071 #### [facility] [address] [place] [address] Calcium [Mass/Vol] 9.9 mg/dL Normal 8.9-11.1 [facility] Comment on above: Performed By: #### 2 536904, 7676925, 48853347, 9929096, 00262105, 1348432, 0912680, 2556859, 0320903, 2799961, 4164801, 7946127999, 30536161 #### [facility] [address] [place] [address] Chloride [Moles/Vol] 101 mmol/L Normal 101-111 [facility] Comment on above: Performed By: #### 2 007029, 0036641, 97986310, 5979179, 38369566, 7079394, 9778493, 0018309, 6512777, 8783328, 9901675, 8351823354, 07580121 #### [facility] [address] [place] [address] CO2 [Moles/Vol] 29 mmol/L Normal 21-31 [facility] Comment on above: Performed By: #### 2 908154, 0932339, 67223271, 1911542, 46454425, 8116520, 2154334, 8959848, 8557849, 8311627, 1008328, 3254763908, 73395362 #### [facility] [address] [place] [address] Creatinine [Mass/Vol] 0.9 mg/dL Normal 0.5-1.3 [facility] Comment on above: Performed By: #### 2 879965, 8370144, 47063780, 0773837, 29434615, 7259120, 5035009, 7461777, 8458723, 7168697, 1861643, 9434122705, 38750948 #### [facility] [address] [place] [address] Globulin (S) [Mass/Vol] 3.0 g/dL Normal 1.4-4.0 [facility] Comment on above: Performed By: #### 2 963329, 6977145, 09782844, 0030963, 57550393, 4788471, 4998158, 9771352, 2879790, 5313629, 7376909, 4400920406, 04693652 #### [facility] [address] [place] [address] Glucose [Mass/Vol] 93 mg/dL Normal 55-199 [facility] Comment on above: Result Comment: If t his glucose result represents a fasting glucose, interpretation should refer to the following reference range: 55-99 mg/dL Performed By: #### 2 453677, 4867059, 19551366, 4186538, 80991723, 1558223, 7924705, 1273379, 2271332, 5865252, 3010451, 9506155612, 48110471 #### [facility] [address] [place] [address] Potassium [Moles/Vol] 4.0 mmol/L Normal 3.5-5.3 [facility] Comment on above: Performed By: #### 2 488979, 1033614, 99346168, 4632386, 82179571, 7900843, 1036348, 8312045, 5847133, 9717887, 4640372, 0523452766, 50053587 #### [facility] [address] [place] [address] Protein [Mass/Vol] 8.0 g/dL High 6.0-7.8 [facility] Comment on above: Performed By: #### 2 651991, 4167103, 83015108, 5520961, 72627848, 0836989, 3245371, 0192962, 9719440, 9087727, 0102597, 5422818138, 90206809 #### [facility] [address] [place] [address] Sodium [Moles/Vol] 139 mmol/L Normal 135-145 [facility] Comment on above: Performed By: #### 2 278097, 6031336, 26549586, 2976489, 45010155, 1710749, 7263454, 5138439, 9981083, 2010570, 7310478, 9286589512, 68361091 #### [facility] [address] [place] [address] Urea nitrogen [Mass/Vol] 11 mg/dL Normal 5-21 [facility] Comment on above: Performed By: #### 2 560172, 5625965, 55572432, 3618271, 27744656, 4235158, 2257950, 1681659, 5059311, 7139553, 8144016, 0003825599, 32359165 #### [facility] [address] [place] [address] Urea nitrogen/Creatinine [Mass ratio] 12 No Units Normal 10-20 [facility] Comment on above: Performed By: #### 2 010691, 7478501, 74605281, 3433855, 13831341, 1983694, 3095281, 7759499, 7912137, 2900220, 9862570, 4250963313, 71117345 #### [facility] [address] [place] [address] CRPon 09-19-2022 CRP [Mass/Vol] 1.0 mg/dL Normal <=1.9 [facility] Comment on above: Performed By: #### 2 182756, 3421018, 25659247, 1284680, 10977894, 1517038, 2666163, 9656946, 7843868, 0469085, 0430924, 7128887195, 75661195 #### [facility] [address] [place] [address] Consent for Treatmenton 08-25 Consent for Treatment [id number] 30 [id number] #1.00CD:127 Normal [facility] Family Medicine Office/Clini c Noteon 09-19-2022 Family Medicine Office/Clinic Note Chief Complaint bloody stool --- on and off for a year, bright red, stomache cramping, blood with solid stools. denies weakness, dizziness, light headedness/ pt would like to talk about epigastric pain he though was a pulled muscle History of Present Illness Pt is 22 years old, presenting today with acute concern of blood in his stool x 1+ year. Pt was recently in the hospital d/t suspected viral gastroenteritis that has resolved and his concern of blood in the stool started over a year ago. Pt denies persistent bleeding, low BP, rapid heart rate, dizziness, comorbidities, hx of diverticulosis, Crohn's or IBS, recent ASA use, or anemia at this time. Pt reports bright red blood in his stool that occurs intermittently. He also has occasional abdominal cramping after eating. Pt reports the bleeding is intermittent, 1-2x/week. Pt denies straining or pain with defecation. Pt reports occasional loose stools. No other concerns stated. Review of Systems PHQ Score Initial Depression Screen Score: 0 Physical Exam Vitals & Measurements HR: 81(Peripheral) RR: 18 BP: 118/68 SpO2: 97% HT: 74 in HT: 188 cm WT: 90.0 kg WT: 198 lb BMI: 25.46 General: Well developed, well nourished, in no acute distress Eyes: Pupils equal, round, and reactive to light. Conjunctivae and sclerae normal, and extraocular movements intact Ears: TM clear, grossly normal hearing Nose: No deformity, discharge, inflammation, or lesions Mouth: MMM. Oropharynx and posterior pharynx without lesions or exudates. Tongue WNL Neck: Neck supple. No lymphadenopathy. Trachea midline. No thyroid, masses, tenderness, or enlargement noted. No bruit. Lungs: Normal respiratory effort and clear to auscultation Cardio: Regular rate and rhythm, normal S1 and S2, no murmur, no rub Abdomen: Soft, non-distended, non-tender normoactive bowel sounds Musculoskeletal: No deformity or scoliosis noted. Normal range of motion. Joints normal. No erythema, edema, effusion, or ecchymosis Extremity: No clubbing, cyanosis or edema. Neurologic: Grossly normal Skin: No rashes, ulcerations, or suspicious lesions Mental Status: Alert and oriented x3. Normal mood and affect Assessment/Plan 1. Blood in stool (K92.1: Melena) Suspect possible IBS etiology, will refer for EDG scope and labs to work up. Discussed red flags/when to seek emergency care. Pt verbalized understanding. f/u 4 weeks. Ordered: dicyclomine, 20 mg = 1 tab(s), Oral, QID, # 120 tab(s), Refills(s) 0, Pharmacy: [facility] #[id number], 188, cm, 09/19/22 7:09:00 EST, Height/Length Dosing, 90, kg, 09/19/22 7:09:00 EST, Weight Dosing 36477 EGD w/ APC (w/ablation of tumors/polyps/lesion s including pre/post-dilation & guidewire) 4327 Amylase Level C-Reactive Protein CBC w/ Auto Diff Celiac Disease Comprehensive Comprehensive Metabolic Panel Free T4 [facility] Internal Ambulatory Referral Hepatic Function Panel Lipase Level Sedimentation Rate Automated T3 Free TSH With T4fr Reflex 2. Abdominal cramping (R10.9: Unspecified abdominal pain) Start Dicyclomine Hcl 20mg q6h PRN. Discussed medication adverse effects and when to return to care or seek emergency care. Pt verbalized understanding. f/u 4 weeks. Ordered: dicyclomine, 20 mg = 1 tab(s), Oral, QID, # 120 tab(s), Refills(s) 0, Pharmacy: [facility] #[id number], 188, cm, 09/19/22 7:09:00 EST, Height/Length Dosing, 90, kg, 09/19/22 7:09:00 EST, Weight Dosing [facility] Internal Ambulatory Referral 3. Routine adult health maintenance (Z00.00: Encounter for general adult medical examination without abnormal findings) f/u 1 year and PRN counseled pt on diet/exercise and staying UTD on routine screenings and vaccines - pt verbalized understanding complete routine labs - will call with results 4. BMI 25.0-25.9,adult (Z68.25: Body mass index [BMI] 25.0-25.9, adult) The standard range for ages 18 and older is >=18.5 and < 25 kg/m2. Your BMI today was above this range, this falls in the overweight to obese category and there are medical benefits to weight loss. We can offer counselling, referral, and/or medical support in addressing this problem. Your BMI and weight management will be followed at subsequent visits. Follow-up With When Contact Information Julissa Holloway In 1 month [address], [place] [address]- Additional Instructions: f/u abd pain/melena Patient Education Gastrointestinal Bleeding, Qvnq-fg-Nlhd Bloody Diarrhea Abdominal Pain, Adult Problem List/Past Medical History Ongoing BMI 24.0-24.9, adult Non-smoker Historical No qualifying data Medications dicyclomine 20 mg Tab, 20 mg= 1 tab(s), Oral, QID naproxen 500 mg Tab, 500 mg= 1 tab(s), Oral, BID, Not taking Allergies amoxicillin (Hives) Social History Alcohol - Denies Alcohol Use, 10/26/2012 Substance Abuse - Denies Substance Abuse, 10/26/2012 Tobacco - Denies Tobacco Use, 10/26/2012 Never (less than 100 in lifetime) Tobacco Use:. Never Sm (more content not included)... Normal [facility] Comment on above: Result Comment: Elec tronically Signed By: Julissa Holloway\.br\Date and Time Signed: 09/19/22 07:52 EST Free T4on 09-19-2022 Free T4 [Mass/Vol] 0.97 ng/dL Normal 0.58-1.64 [facility] Comment on above: Performed By: #### 2 374216, 2721058, 16249651, 1473157, 35404603, 7484841, 2755675, 6174472, 1313278, 4036384, 4050157, 6577771508, 02682874 #### [facility] [address] [place] [address] HEMATOLOGYOrdered By: SYSTEM SYSTEM on 09-19-2022 Basophils/100 WBC (Bld) 0.6 % Normal 0.0 - 2.0 % [facility] Basophils/Leukocytes Auto (Bld) [Pure # fraction] 0.0 E9/L Normal 0.0 - 0.2 E9/L [facility] Eosinophils/100 WBC (Bld) 1.1 % Normal 0.0 - 8.0 % [facility] Eosinophils/Leukocyte s Auto (Bld) [Pure # fraction] 0.1 E9/L Normal 0.0 - 0.5 E9/L [facility] Lymphocytes/100 WBC (Bld) 45.2 % Normal 14.0 - 50.0 % [facility] Lymphocytes/Leukocyte s Auto (Bld) [Pure # fraction] 3.0 E9/L Normal 1.0 - 4.0 E9/L [facility] Monocytes/100 WBC (Bld) 7.0 % Normal 4.0 - 14.0 % [facility] Monocytes/Leukocytes Auto (Bld) [Pure # fraction] 0.5 E9/L Normal 0.2 - 1.0 E9/L [facility] Neutrophils/100 WBC (Bld) 46.1 % Normal 36.0 - 75.0 % [facility] Neutrophils/Leukocyte s Auto (Bld) [Pure # fraction] 3.1 E9/L Normal 2.0 - 7.5 E9/L [facility] HEMATOLOGYOrdered By: Jeannette Romo on 09-19-2022 Erythrocyte distribution width (RBC) [Ratio] 12.7 % Normal 10.9 - 14.2 % [facility] Hematocrit (Bld) [Volume fraction] 43.3 % Normal 37.7 - 49.0 % [facility] Hemoglobin (Bld) [Mass/Vol] 14.4 g/dL Normal 13.5 - 17.5 gm/dL [facility] MCH (RBC) [Entitic mass] 27.3 pg Normal 27.0 - 34.0 pg FT HemeAutoSS MCHC (RBC) [Mass/Vol] 33.2 g/dL Normal 31.4 - 36.0 gm/dL FT HemeAutoSS MCV (RBC) [Entitic vol] 82.3 fL Normal 80.0 - 100.0 fL FT HemeAutoSS Platelet mean volume (Bld) [Entitic vol] 7.2 fL Normal 6.4 - 10.8 fL FT HemeAutoSS Platelets (Bld) [#/Vol] 332.0 E9/L Normal 150.0 - 500.0 E9/L FT HemeAutoSS RBC (Bld) [#/Vol] 5.3 E12/L Normal 4.3 - 5.9 E12/L FT HemeAutoSS Sed Rate Automated 11 mm/h Normal 0 - 19 mm/hr FT HemeAutoSS WBC corrected for nucl RBC Auto (Bld) [#/Vol] 6.7 E9/L Normal 4.0 - 11.0 E9/L [facility] HemeAutoSS Lipase Levelon 09-19-2022 Lipase [Catalytic activity/Vol] 32 U/L Normal 13-58 [facility] Comment on above: Performed By: #### 2 [id number], [id number], [id number], [id number], 1176376, 1249594, 4680639, 6353571, 1634967, [id number], [id number], [id number] #### [facility] [address] [place] [address] Patient Educationon 09-19-19 23 Patient Education Gastroenterology Gastrointestinal Bleeding Gastrointestinal (GI) bleeding is bleeding somewhere along the path that food travels through the body (digestive tract). This path is anywhere between the mouth and the opening of the butt (anus). You may have blood in your poop (stool) or have black poop. If you throw up (vomit), there may be blood in it. This condition can be mild, serious, or even life-threatening. If you have a lot of bleeding, you may need to stay in the hospital. What are the causes? This condition may be caused by: ? Irritation and swelling of the esophagus (esophagitis). The esophagus is part of the body that moves food from your mouth to your stomach. ? Swollen veins in the butt (hemorrhoids). ? Areas of painful tearing in the opening of the butt (anal fissures). These are often caused by passing hard poop. ? Pouches that form on the colon over time (diverticulosis). ? Irritation and swelling (diverticulitis) in areas where pouches have formed on the colon. ? Growths (polyps) or cancer. Colon cancer often starts out as growths that are not cancer. ? Irritation of the stomach lining (gastritis). ? Sores (ulcers) in the stomach. What increases the risk? You are more likely to develop this condition if you: ? Have a certain type of infection in your stomach (Helicobacter pylori infection). ? Take certain medicines. ? Smoke. ? Drink alcohol. What are the signs or symptoms? Common symptoms of this condition include: ? Throwing up (vomiting) material that has bright red blood in it. It may look like coffee grounds. ? Changes in your poop. The poop may: ? Have red blood in it. ? Be black, look like tar, and smell stronger than normal. ? Be red. ? Pain or cramping in the belly (abdomen). How is this treated? Treatment for this condition depends on the cause of the bleeding. For example: ? Sometimes, the bleeding can be stopped during a procedure that is done to find the problem (endoscopy or colonoscopy). ? Medicines can be used to: ? Help control irritation, swelling, or infection. ? Reduce acid in your stomach. ? Certain problems can be treated with: ? Creams. ? Medicines that are put in the butt (suppositories). ? Warm baths. ? Surgery is sometimes needed. ? If you lose a lot of blood, you may need a blood transfusion. If bleeding is mild, you may be allowed to go home. If there is a lot of bleeding, you will need to stay in the hospital. Follow these instructions at home: ? Take jbfl-cdq-fktwadu and prescription medicines only as told by your doctor. ? Eat foods that have a lot of fiber in them. These foods include beans, whole grains, and fresh fruits and vegetables. You can also try eating 1?3 prunes each day. ? Drink enough fluid to keep your pee (urine) pale yellow. ? Keep all follow-up visits as told by your doctor. This is important. Contact a doctor if: ? Your symptoms do not get better. Get help right away if: ? Your bleeding does not stop. ? You feel dizzy or you pass out (faint). ? You feel weak. ? You have very bad cramps in your back or belly. ? You pass large clumps of blood (clots) in your poop. ? Your symptoms are getting worse. ? You have chest pain or fast heartbeats. Summary ? GI bleeding is bleeding somewhere along the path that food travels through the body (digestive tract). ? This bleeding can be caused by many things. Treatment depends on the cause of the bleeding. ? Take medicines only as told by your doctor. ? Keep all follow-up visits as told by your doctor. This is important. This information is not intended to replace advice given to you by your health care provider. Make sure you discuss any questions you have with your health care provider. Document Released: 05/19/2009 Document Revised: 03/23/2019 Document Reviewed: 03/23/2019 [employer] Patient Education ? 2020 [place]. Abdominal Pain, Adult Pain in the abdomen (abdominal pain) can be caused by many things. Often, abdominal pain is not serious and it gets better with no treatment or by being treated at home. However, sometimes abdominal pain is serious. Your health care provider will ask questions about your medical history and do a physical exam to try to determine the cause of your abdominal pain. Follow these instructions at home: Medicines ? Take ivqd-pda-walpkqs and prescription medicines only as told by your health care provider. ? Do not take a laxative unless told by your health care provider. General instructions ? Watch your condition for any changes. ? Drink enough fluid to keep your urine pale yellow. ? Keep all follow-up visits as told by your health care provider. This is important. Contact a health care provider if: ? Your abdominal pain changes or gets worse. ? You are not hungry or you lose weight without trying. ? You are constipated or have diarrhea for more than (more content not included)... Normal [facility] Sed Rate Automatedon 09-19-2 023 Sed Rate Automated 11 mm/hr Normal 0-19 [facility] Comment on above: Performed By: #### 2 [id number], [id number], [id number], 9726068, [id number], 6927422, 3225512, 3598273, 4366156, 2404830, 5688940, [id number], [id number] #### [facility] [address] [place] [address] TSH With T4fr Reflexon 09-19 TSH Qn 2.21 m[IU]/L Normal 0.34-5.60 [facility] Comment on above: Performed By: #### 2 [id number], 5320960, [id number], 2031304, 55138160, 9457106, 6651695, 8098809, 1482093, 2441990, 6298245, [id number], [id number] #### [facility] [address] [place] [address] eGFRon 09-19-2022 GFR/1.73 sq M.predicted among blacks MDRD (S/P/Bld) [Vol rate/Area] mL/min/{1.73_m2} Normal >=59 [facility] Comment on above: Order Comment: Order added by Discern Expert. Result Comment: eGFR is race adjusted. AA=. Performed By: #### 2 [id number], 4192534, [id number], 1100892, 72241229, 2447035, 0255790, 2760012, 3446953, 1170947, 5938278, [id number], [id number] #### [facility] [address] [place] [address] GFR/1.73 sq M.predicted among non-blacks MDRD (S/P/Bld) [Vol rate/Area] mL/min/{1.73_m2} Normal >=59 [facility] Comment on above: Order Comment: Order added by Discern Expert. Result Comment: Return Clerk gustavo kidney disease could be indicated at eGFR's of less than 60 mL/min/1.73m2. Kidney failure is indicated at less than 15 mL/min/1.73m2. Performed By: #### 2 [id number], 9921298, [id number], 2780893, 88710136, 5276512, 2922909, 5845360, 8089425, 8249280, 1765083, [id number], [id number] #### [facility] [address] [place] [address] CBC AUTO DIFFon 09-10-2022 BASO # 0.0 103/ul Normal 0.0-0.1 [facility] Comment on above: Performed By: #### C BC #### [facility] [address] [address] [address] Samy Agustin Basophils/100 WBC (Bld) 0.2 % Normal 0.2-2.0 [facility] Comment on above: Performed By: #### C BC #### [facility] [address] [place] [address] Dr. Samy Agustin EO # 0.1 103/ul Normal 0.0-0.7 [facility] Comment on above: Performed By: #### C BC #### [facility] [address] [place] [address] Dr. Samy Agustin Eosinophils/100 WBC (Bld) 2.6 % Normal 0.9-7.0 [facility] Comment on above: Performed By: #### C BC #### [facility] [address] [place] [address] Dr. Samy Agustin Erythrocyte distribution width (RBC) [Ratio] 11.8 % Normal 11.0-15.0 [facility] Comment on above: Performed By: #### C BC #### [facility] [address] [place] [address] Dr. Samy Agustin Hematocrit (Bld) [Volume fraction] 39.9 % Critically low 42.0-54.0 [facility] Comment on above: Performed By: #### C BC #### [facility] [address] [place] [address] Dr. Samy Agustin Hemoglobin (Bld) [Mass/Vol] 13.9 g/dL Critically low 14.0-18.0 [facility] Comment on above: Performed By: #### C BC #### [facility] [address] [place] [address] Dr. Samy Agustin IG # 0.02 10e3/ul Normal 0.00-0.03 [facility] Comment on above: Performed By: #### C BC #### [facility] [address] [place] [address] Dr. Samy Agustin IG % 0.4 % Normal 0.0-0.5 [facility] Comment on above: Performed By: #### C BC #### [facility] [address] [place] [address] Dr. Samy Agustin LYMPH # 1.4 103/ul Normal 1.2-3.8 [facility] Comment on above: Performed By: #### C BC #### [facility] [address] [place] [address] Dr. Samy Agustin Lymphocytes/100 WBC (Bld) 25.0 % Normal 20.5-60.0 [facility] Comment on above: Performed By: #### C BC #### [facility] [address] [place] [address] Dr. Samy Agustin MANUAL DIFF REQ NO Normal [facility] Comment on above: Performed By: #### C BC #### [facility] [address] [place] [address] Dr. Samy Agustin MCH (RBC) [Entitic mass] 27.9 pg Normal 25.9-34.0 [facility] Comment on above: Performed By: #### C BC #### [facility] [address] [place] [address] Dr. Samy Agustin MCHC (RBC) [Mass/Vol] 34.8 g/dL Normal 29.9-35.2 [facility] Comment on above: Performed By: #### C BC #### [facility] [address] [place] [address] Dr. Samy Agustin MCV (RBC) [Entitic vol] 80.0 fL Normal 80.0-94.0 [facility] Comment on above: Performed By: #### C BC #### [facility] [address] [place] [address] Dr. Samy Agustin MONO # 0.6 103/ul Normal 0.3-0.8 [facility] Comment on above: Performed By: #### C BC #### [facility] [address] [place] [address] Dr. Samy Agustin Monocytes/100 WBC (Bld) 10.4 % Normal 1.7-12.0 [facility] Comment on above: Performed By: #### C BC #### [facility] [address] [place] [address] Dr. Samy Agustin NEUT # 3.4 103/ul Normal 1.4-6.5 [facility] Comment on above: Performed By: #### C BC #### [facility] [address] [place] [address] Dr. Samy Agustin Neutrophils/100 WBC (Bld) 61.4 % Normal 43.0-75.0 [facility] Comment on above: Performed By: #### C BC #### [facility] [address] [place] [address] Dr. Samy Agustin Platelet mean volume (Bld) [Entitic vol] 9.0 fL Critically low 9.5-13.5 [facility] Comment on above: Performed By: #### C BC #### [facility] [address] [place] [address] Dr. Samy Agustin PLT 230 103/ul Normal 150-450 [facility] Comment on above: Performed By: #### C BC #### [facility] [address] [place] [address] Dr. Samy Agustin RBC 4.99 106/ul Normal 4.70-6.10 [facility] Comment on above: Performed By: #### C BC #### [facility] [address] [place] [address] Dr. Samy Agustin WBC 5.5 103/ul Normal 4.0-11.0 [facility] Comment on above: Performed By: #### C BC #### [facility] [address] [place] [address] Dr. Samy Agustin Covid-19 PCR (CVDTBH)on 08-24 SARS-CoV-2 (COVID-19) RNA EDUARDO+probe Ql (Unsp spec) Not detected Normal NOT DETECTED [facility] Comment on above: Result Comment: When diagnostic testing is negative, the possibility of a false negative should be considered in the context of a patient's recent exposures and the presence of clinical signs and symptoms consistent with SARS-CoV-2. This test is not yet approved or cleared by the [place] FDA. When there are no FDA-approved or cleared tests available, and other criteria are met, FDA can make tests available under an emergency access mechanism called an Emergency Use Authorization (EUA). The EUA for this test is supported by the [place] of Health and Human Service's declaration that circumstances exist to justify the emergency use of in vitro diagnostics for the detection and/or diagnosis of the virus that causes COVID-19. This EUA will remain in effect for the duration of the COVID-19 declaration justifying emergency of IVDs, unless it is terminated or revoked by the FDA (after which the test may no longer be used). Performed By: #### C VDTB #### [facility] [address] [place] [address] Dr. Samy Agustin INFLUENZA A AND B AGon 09-10 [facility] SEE BELOW Normal [facility] Comment on above: Result Comment: Nega tive for Flu A protein angiten. Infection due to Flu A cannot be ruled out. Flu A angiten in the sample may be below the detection limit of the test. Performed By: #### I NFLUAB #### [facility] [address] [place] [address] Dr. Samy Agustin INFLUBNEG SEE BELOW Normal [facility] Comment on above: Result Comment: Nega tive for Flu B protein antigen. Infection due to Flu B cannot be ruled out. Flu B antigen in the sample may be below the detection limit of the test. Performed By: #### I NFLUAB #### [facility] [address] [place] [address] Dr. Samy Agustin INFLUENZA A AG Negative Normal NEGATIVE SEE COMMENT [facility] Comment on above: Performed By: #### I NFLUAB #### [facility] [address] [place] [address] Dr. Samy Agustin INFLUENZA B AG Negative Normal NEGATIVE SEE COMMENT [facility] Comment on above: Performed By: #### I NFLUAB #### [facility] [address] [place] [address] Dr. Samy Agustin PROF CHEM 8 (BAS METB)on Anion gap [Moles/Vol] 12.0 mmol/L Normal [facility] Comment on above: Performed By: #### B MP, HSTROPN #### [facility] [address] [place] [address] Dr. Samy Agustin Calcium [Mass/Vol] 9.0 mg/dL Normal 8.5-10.1 [facility] Comment on above: Performed By: #### B MP, HSTROPN #### [facility] [address] [place] [address] Dr. Samy Agustin Chloride [Moles/Vol] 103 mmol/L Normal 98-107 [facility] Comment on above: Performed By: #### B MP, HSTROPN #### [facility] [address] [place] [address] Dr. Samy Agustin CO2 [Moles/Vol] 30.5 mmol/L Normal 21.0-32.0 [facility] Comment on above: Performed By: #### B MP, HSTROPN #### [facility] [address] [place] [address] Dr. Samy Agustin Creatinine [Mass/Vol] 0.98 mg/dL Normal 0.70-1.30 [facility] Comment on above: Performed By: #### B MP, HSTROPN #### [facility] [address] [place] [address] Dr. Samy Agustin EGFR-AF [place] >60 Normal >=60 [facility] Comment on above: Performed By: #### B MP, HSTROPN #### [facility] [address] [place] [address] Dr. Samy Agustin EGFR-NON AF [place] >60 Normal >=60 [facility] Comment on above: Performed By: #### B MP, HSTROPN #### [facility] [address] [address] [address] Samy Agustin Glucose [Mass/Vol] 99 mg/dL Normal 74-106 [facility] Comment on above: Performed By: #### B MP, HSTROPN #### [facility] [address] [address] [address] Samy Agustin Potassium [Moles/Vol] 3.5 mmol/L Normal 3.5-5.1 [facility] Comment on above: Performed By: #### B MP, HSTROPN #### [facility] [address] [address] [address] Samy Agustin Sodium [Moles/Vol] 142 mmol/L Normal 136-145 [facility] Comment on above: Performed By: #### B MP, HSTROPN #### [facility] [address] [address] [address] Samy Agustni Urea nitrogen [Mass/Vol] 12.0 mg/dL Normal 7.0-18.0 [facility] Comment on above: Performed By: #### B MP, HSTROPN #### [facility] [address] [place] [address] Dr. Samy Agustin Urea nitrogen/Creatinine [Mass ratio] 12.2 mg/mg Normal [facility] Comment on above: Performed By: #### B MP, HSTROPN #### [facility] [address] [place] [address] Dr. Samy Agustin TROPONIN, HIGH SENSITIVITYon 09-10-2022 HSTROP 9.6 pg/mL Normal 4.0-76.1 [facility] Comment on above: Result Comment: CUT- OFF POINTS HAVE BEEN ESTABLISHED BASED ON THE FOURTH UNIVERSAL DEFINITIONS OF MYOCARDIAL INFARCTION. THE UPPER REFERENCE LIMIT (URL) OF TROPONIN, DEFINED THE 99TH PERCENTILE OF cTnI DISTRIBUTION IN A REFERENCE POPULATION, HAS BEEN CONFIRMED THE DECISION THRESHOLD FOR [place] DIAGNOSIS. Performed By: #### B MP, HSTROPN #### [facility] [address] [place] [address] Dr. Samy Agustin XR CHEST 1 Von 09-10-2022 XR CHEST 1 V EXAMINATION: XR CHEST 1 V HISTORY: SHORTNESS OF BREATH COMPARISON: No relevant comparison available. TECHNIQUE: AP portable FINDINGS: LUNGS: No significant pulmonary parenchymal abnormalities. Scattered pulmonary nodules, size and density suggests granulomas VASCULATURE: No increased pulmonary vasculature. PLEURA: No pneumothorax, effusion, or pleural thickening. CARDIAC: No cardiomegaly or cardiac silhouette abnormality. MEDIASTINUM: No visible mass or adenopathy. BONES: No fracture or visible bone lesion. OTHER: Negative. IMPRESSION: No acute disease. Electronically authenticated by: RONNELL SULLIVAN Date: 2022-09-10 08:54 Normal [facility] Vital Signs Date Time Vital Sign Value Performing Clinician Facility 10-27-2024 10:32-0500 Body height 184.15 cm [facility] 10-27-2024 10:32-0500 Body mass index (BMI) [Ratio] 27.2 kg/m2 [facility] 10-27-2024 10:32-0500 Body temperature 98.3 [degF] [facility] 10-27-2024 10:32-0500 Body weight 92.3 kg [facility] 10-27-2024 10:32-0500 Diastolic blood pressure 84 mm[Hg] [facility] 10-27-2024 10:32-0500 Heart rate 80 /min [facility] 10-27-2024 10:32-0500 Systolic blood pressure 132 mm[Hg] [facility] 03-22-2024 10:39-0400 Body height 184.15 cm [facility] 03-22-2024 10:39-0400 Body mass index (BMI) [Ratio] 27.6 kg/m2 [facility] 03-22-2024 10:39-0400 Body weight 93.89 kg [facility] 03-22-2024 10:39-0400 Diastolic blood pressure 82 mm[Hg] [facility] 03-22-2024 10:39-0400 Heart rate 72 /min [facility] 03-22-2024 10:39-0400 Systolic blood pressure 132 mm[Hg] [facility] 05-25-2023 17:49-0400 Blood Pressure Location MOHSEN ARCE [facility] 05-25-2023 17:49-0400 Body temperature 98.06 [degF] MOHSEN ARCE [facility] 05-25-2023 17:49-0400 Diastolic blood pressure 76 mm[Hg] MOHSEN ARCE [facility] 05-25-2023 17:49-0400 Heart rate 74 /min STAR YAZMIN [facility] 05-25-2023 17:49-0400 SaO2% (BldA) [Mass fraction] 99 % STAR YAZMIN [facility] 05-25-2023 17:49-0400 Systolic blood pressure 124 mm[Hg] STAR YAZMIN [facility] 09-19-2022 07:02-0500 Blood Pressure Location Julissa Maxwell [facility] 09-19-2022 07:02-0500 Diastolic blood pressure 68 mm[Hg] Julissa Missler [facility] 09-19-2022 07:02-0500 Heart rate 81 /min Julissa Missler [facility] 09-19-2022 07:02-0500 Respiratory rate 18 /min Julissa Missler [facility] 09-19-2022 07:02-0500 SaO2% (BldA) [Mass fraction] 97 % Julissa Missler [facility] 09-19-2022 07:02-0500 Systolic blood pressure 118 mm[Hg] Julissa Missler [facility] 05-22-2022 09:56-0400 Blood Pressure Location Charito Redd [facility] 05-22-2022 09:56-0400 Body temperature 98.6 [degF] Charito Redd [facility] 05-22-2022 09:56-0400 Diastolic blood pressure 74 mm[Hg] Charito Redd [facility] 05-22-2022 09:56-0400 Heart rate 76 /min Charito Redd [facility] 05-22-2022 09:56-0400 SaO2% (BldA) [Mass fraction] 99 % Charito Redd [facility] 05-22-2022 09:56-0400 Systolic blood pressure 122 mm[Hg] Charito Redd [facility] Encounters Encounter Date Encounter Type Care Provider Facility Start: 10-27-2024 End: 10-27-2024 ambulatory [facility] Work Phone: Start: 10-27-2024 End: 10-27-2024 Patient encounter procedure [facility] Work Phone: Start: 03-22-2024 Patient encounter status [facility] Start: 03-22-2024 End: 03-22-2024 ambulatory [facility] Work Phone: Start: 03-22-2024 End: 03-22-2024 Patient encounter procedure [facility] Work Phone: Start: 06-08-2023 ambulatory Frantz Morrison ty:[facility] Start: 05-25-2023 End: 05-26-2023 ambulatory [facility] Facility:[facility] Start: 05-25-2023 End: 05-25-2023 Patient encounter procedure MOHSEN ARCE [facility] Start: 09-23-2022 ambulatory Julissa Maxwell [facility]ilit y[email or web address] Start: 09-19-2022 End: 09-20-2022 ambulatory Julissa Maxwell Facility:[facility] Start: 09-19-2022 End: 09-19-2022 Patient encounter procedure Julissa Maxwell [facility] Start: 09-19-2022 End: 09-20-2022 ambulatory Julissa Maxwell Facility:[facility] Start: 09-19-2022 End: 09-19-2022 Patient encounter procedure Julissa Maxwell [facility] Start: 09-19-2022 End: 09-19-2022 Well adult monitoring check done Julissa Maxwell [facility] Start: 09-10-2022 End: 09-10-2022 ambulatory [facility] Facility: Start: 09-02-2022 ambulatory Julissa Maxwell Facilit y:[facility] DELCID Start: 05-22-2022 End: 05-22-2022 Patient encounter procedure Charito Redd [facility] Procedures Date Procedure Procedure Detail Performing Clinician Tonsillectomy MOHSEN Dawn Plan of Treatment Date Care Activity Detail Author [facility] Immunizations Immunization Date Immunization Notes Care Provider Ramya hernández 06-06-2022 influenza, seasonal, injectable Julissa Maxwell [facility] 01-10-2022 measles, mumps and rubella virus vaccine Charito Redd [facility] [place] 2021 SARS-CoV-2 (COVID-19 ) Ad26 vaccine, recombinant Charito Kirbyell [facility] 03-09-2003 DTaP, unspecified formulation Charito Kirbyell [facility] 03-09-2003 measles, mumps and rubella virus vaccine Charito Kirbyell [facility] 03-09-2003 poliovirus vaccine, unspecified formulation Charito Kirbyell [facility] 10-02-1999 DTaP, unspecified formulation Charito Kirbyell [facility] 10-02-1999 measles, mumps and rubella virus vaccine Charito Kirbyell [facility] 10-02-1999 varicella virus vaccine Charito Kirbyell [facility] 1998 DTaP, unspecified formulation Charito Kirbyell [facility] 1998 DTaP, unspecified formulation Charito Kirbyell [facility] 1998 haemophilus influenzae type b vaccine, PRP-OMP conjugate Charitokalli Kirbyell [facility] 1998 DTaP, unspecified formulation Charito Kirbyell [facility] 1998 hepatitis B vaccine, pediatric or pediatric/adolescent dosage Charitokalli Kirbyell [facility] 1998 Hib, unspecified formulation Charito Redd [facility] 1998 hepatitis B vaccine, pediatric or pediatric/adolescent dosage Charito Redd [facility] NEGATED: Highlighted row has not occurred!05-25-2023 influenza virus vaccine, unspecified formulation MOHSEN ARCE [facility] NEGATED: Highlighted row has not occurred!05-22-2022 influenza virus vaccine, unspecified formulation Charito Kirbyell [facility] Payers Date Payer Category Payer Unknown [id number] 1998 Unknown [id number] 1998 Unknown [id number] [id number] 1998 Unknown [id number] [id number] 1998 Unknown [id number] 2.16.8 [id number] 1998 Unknown [id number] 2.16.8 [id number] 1998 Unknown [id number] 2.16.8 [id number] 1959 Unknown [id number] Unknown [employer] BC/BS [id number] Social History Date Type Detail Facility Start: 05-22-2022 End: 03-22-2024 Tobacco smoking status Never smoked tobacco (finding) [facility] Tobacco smoking status Never [facility] Sex Assigned At Male [facility] Start: 2000 Sex Assigned At Male [facility] Start: 10-27-2024 Sex Male (finding) [facility] [place] Functional Status Date Assessment Result Facility 05-25-2023 Functional Status N/A [facility] 09-19-2022 Functional Status N/A [facility] 05-22-2022 Functional Status N/A [facility] Evaluation + Plan note 09-19-2022 Note Date & Type Note Facility 09-19-2022 Evaluation + Plan note Diagnostic Tests PendingT3 Free 09/19/22Celiac Disease Comprehensive 09/19/22 [facility] Discharge instructions 09-19-2022 Note Date & Type Note Facility 09-19-2022 Hospital Discharg e instructions Patient Education 09/19/2022 07:49:04 Gastrointestinal Bleeding, [id number] Gastrointestinal Bleeding Gastrointestinal (GI) bleeding is bleeding somewhere along the path that food travels through the body (digestive tract). This path is anywhere between the mouth and the opening of the butt (anus). You may have blood in your poop (stool) or have black poop. If you throw up (vomit), there may be blood in it. This condition can be mild, serious, or even life-threatening. If you have a lot of bleeding, you may need to stay in the hospital. What are the causes? This condition may be caused by: Irritation and swelling of the esophagus (esophagitis). The esophagus is part of the body that moves food from your mouth to your stomach. Swollen veins in the butt (hemorrhoids). Areas of painful tearing in the opening of the butt (anal fissures). These are often caused by passing hard poop. Pouches that form on the colon over time (diverticulosis). Irritation and swelling (diverticulitis) in areas where pouches have formed on the colon. Growths (polyps) or cancer. Colon cancer often starts out as growths that are not cancer. Irritation of the stomach lining (gastritis). Sores (ulcers) in the stomach. What increases the risk? You are more likely to develop this condition if you: Have a certain type of infection in your stomach (Helicobacter pylori infection). Take certain medicines. Smoke. Drink alcohol. What are the signs or symptoms? Common symptoms of this condition include: Throwing up (vomiting) material that has bright red blood in it. It may look like coffee grounds. Changes in your poop. The poop may: ?Have red blood in it. ?Be black, look like tar, and smell stronger than normal. ?Be red. Pain or cramping in the belly (abdomen). How is this treated? Treatment for this condition depends on the cause of the bleeding. For example: Sometimes, the bleeding can be stopped during a procedure that is done to find the problem (endoscopy or colonoscopy). Medicines can be used to: ?Help control irritation, swelling, or infection. ?Reduce acid in your stomach. Certain problems can be treated with: ?Creams. ?Medicines that are put in the butt (suppositories). ?Warm baths. Surgery is sometimes needed. If you lose a lot of blood, you may need a blood transfusion. If bleeding is mild, you may be allowed to go home. If there is a lot of bleeding, you will need to stay in the hospital. Follow these instructions at home: Take aczh-bxc-dbjjpoz and prescription medicines only as told by your doctor. Eat foods that have a lot of fiber in them. These foods include beans, whole grains, and fresh fruits and vegetables. You can also try eating 1 3 prunes each day. Drink enough fluid to keep your pee (urine) pale yellow. Keep all follow-up visits as told by your doctor. This is important. Contact a doctor if: Your symptoms do not get better. Get help right away if: Your bleeding does not stop. You feel dizzy or you pass out (faint). You feel weak. You have very bad cramps in your back or belly. You pass large clumps of blood (clots) in your poop. Your symptoms are getting worse. You have chest pain or fast heartbeats. Summary GI bleeding is bleeding somewhere along the path that food travels through the body (digestive tract). This bleeding can be caused by many things. Treatment depends on the cause of the bleeding. Take medicines only as told by your doctor. Keep all follow-up visits as told by your doctor. This is important. This information is not intended to replace advice given to you by your health care provider. Make sure you discuss any questions you have with your health care provider. Document Released: 05/19/2009 Document Revised: 03/23/2019 Document Reviewed: 03/23/2019 [employer] Patient Education 2020 [employer]. 09/19/2022 07:49:01 Bloody Diarrhea Bloody Diarrhea Bloody diarrhea is frequent loose and watery bowel movements that contain blood. The blood can be hard to see or notice (occult). Bloody diarrhea may be caused by medical conditions such as: Ulcerative colitis. Crohn's disease. Intestinal infection. Viral gastroenteritis or bacterial gastroenteritis. Finding out why there is blood in your diarrhea is necessary so that your health care provider can prescribe the right treatment for you. Follow the instructions from your health care provider about treating the cause of your bloody diarrhea. Any type of diarrhea can make you feel weak and dehydrated. Dehydration can make you tired and thirsty, cause you to have a dry mouth, and decrease how often you urinate. Follow these instructions at home: Eating and drinking Follow these recommendations as told by your health care provider: Take an oral rehydration solution (ORS). This is an gimk-ypn-vohmayh medicine that helps return your body to its normal balance of nutrients and water. It is found at pharmacies and retail stores. Drink enough fluid to keep your urine pale yellow. ?Drink fluids such as water, ice chips, diluted fruit juice, and low-calorie sports drinks. You can also drink milk products, if desired. ?Avoid drinking fluids that contain a lot of sugar or caffeine, such as energy drinks, regular sports drinks, and soda. ?Avoid alcohol. Eat bland, ywot-qz-ubfarj foods in small amounts as you are able. These foods include bananas, applesauce, rice, lean meats, toast, and crackers. Avoid spicy or fatty foods. Medicines Take kgin-bya-cihgxqd and prescription medicines only as told by your health care provider. ?Your health care provider may prescribe medicine to slow down the frequency of diarrhea or to ease stomach discomfort. If you were prescribed an antibiotic medicine, take it as told by your health care provider. Do not stop using the antibiotic even if you start to feel better. General instructions Wash your hands often using soap and water. If soap and water are not available, use a hand clay preparation supervisor. Others in the household should wash their hands as well. Hands should be washed: ?After using the toilet or changing a diaper. ?Before preparing, cooking, or serving food. ?While caring for a sick person or while visiting someone in a hospital. Rest at home while you recover. Take a warm bath to relieve any burning or pain from frequent diarrhea episodes. Watch your condition for any changes. Keep all follow-up visits as told by your health care provider. This is important. Contact a health care provider if: You have a fever. Your diarrhea gets worse. You have new symptoms. You cannot keep fluids down. You feel light-headed or dizzy. You have a headache. You have muscle cramps. Get help right away if: You have chest pain. You feel extremely weak or you faint. The blood in your diarrhea increases or turns a different color. You vomit and the vomit is bloody or looks black. You have persistent diarrhea. You have severe pain, cramping, or bloating in your abdomen. You have trouble breathing or you are breathing very quickly. Your heart is beating very quickly. Your skin feels cold and clammy. You feel confused. You have signs of dehydration, such as: ?Dark urine, very little urine, or no urine. ?Cracked lips. ?Dry mouth. ?Sunken eyes. ?Sleepiness. ?Weakness. Summary Bloody diarrhea is frequent loose and watery bowel movements that contain blood. The blood can be hard to see or notice (occult). Follow the instructions from your health care provider about treating the cause of your bloody diarrhea. Any type of diarrhea can make you feel weak and dehydrated. Follow your health care provider's recommendations for eating and drinking and for taking medicines. Contact your health care provider if your symptoms get worse. Get help right away if you have signs of dehydration. This information is not intended to replace advice given to you by your health care provider. Make sure you discuss any questions you have with your health care provider. Document Released: 08/10/2006 Document Revised: 01/20/2019 Document Reviewed: 01/20/2019 [employer] Patient Education 2020 [employer]. 09/19/2022 07:48:57 Abdominal Pain, Adult Abdominal Pain, Adult Pain in the abdomen (abdominal pain) can be caused by many things. Often, abdominal pain is not serious and it gets better with no treatment or by being treated at home. However, sometimes abdominal pain is serious. Your health care provider will ask questions about your medical history and do a physical exam to try to determine the cause of your abdominal pain. Follow these instructions at home: Medicines Take kbsg-uua-bjntiba and prescription medicines only as told by your health care provider. Do not take a laxative unless told by your health care provider. General instructions Watch your condition for any changes. Drink enough fluid to keep your urine pale yellow. Keep all follow-up visits as told by your health care provider. This is important. Contact a health care provider if: Your abdominal pain changes or gets worse. You are not hungry or you lose weight without trying. You are constipated or have diarrhea for more than 2 3 days. You have pain when you urinate or have a bowel movement. Your abdominal pain wakes you up at night. Your pain gets worse with meals, after eating, or with certain foods. You are vomiting and cannot keep anything down. You have a fever. You have blood in your urine. Get help right away if: Your pain does not go away as soon as your health care provider told you to expect. You cannot stop vomiting. Your pain is only in areas of the abdomen, such as the right side or the left lower portion of the abdomen. Pain on the right side could be caused by appendicitis. You have bloody or black stools, or stools that look like tar. You have severe pain, cramping, or bloating in your abdomen. You have signs of dehydration, such as: ?Dark urine, very little urine, or no urine. ?Cracked lips. ?Dry mouth. ?Sunken eyes. ?Sleepiness. ?Weakness. You have trouble breathing or chest pain. Summary Often, abdominal pain is not serious and it gets better with no treatment or by being treated at home. However, sometimes abdominal pain is serious. Watch your condition for any changes. Take nmsi-orx-rkqgptu and prescription medicines only as told by your health care provider. Contact a health care provider if your abdominal pain changes or gets worse. Get help right away if you have severe pain, cramping, or bloating in your abdomen. This information is not intended to replace advice given to you by your health care provider. Make sure you discuss any questions you have with your health care provider. Document Released: 05/20/2006 Document Revised: 12/19/2019 Document Reviewed: 12/19/2019 [employer] Patient Education 2020 [employer]. Follow Up Care 09/02/2022 12:54:39 With:Alissa DIEGO, Julissa Ceron Address: [address] [place] [address] [place], [facility] [place] [address]- When:Within 1 Month(s) Comments:f/u abd pain/sylvesterbora [facility] Hospital Discharge instructions 05-22-2022 Note Date & Type Note Facility 05-22-2022 Hospital Discharg e instructions Patient Education 05/22/2022 10:20:46 BMI for Adults BMI for Adults Body mass index (BMI) is a number that is calculated from a person's weight and height. BMI may help to estimate how much of a person's weight is composed of fat. BMI can help identify those who may be at higher risk for certain medical problems. How is BMI used with adults? BMI is used as a screening tool to identify possible weight problems. It is used to check whether a person is obese, overweight, healthy weight, or underweight. How is BMI calculated? BMI measures your weight and compares it to your height. This can be done either in [place] or metric measurements. Note that charts are available to help you find your BMI quickly and easily without having to do these calculations yourself. To calculate your BMI in [place] measurements, your health care provider will: 1.Measure your weight in pounds (lb). 2.Multiply the number of pounds by 703. For example, for a person who weighs 180 lb, multiply that number by 703, which equals 126,540. 3.Measure your height in inches (in). Then multiply that number by itself to get a measurement called inches squared. For example, for a person who is 70 in tall, the inches squared measurement is 70 in x 70 in, which equals 4900 inches squared. 4.Divide the total from Step 2 (number of lb x 703) by the total from Step 3 (inches squared): 126,540 4900 = 25.8. This is your BMI. To calculate your BMI in metric measurements, your health care provider will: 1.Measure your weight in kilograms (kg). 2.Measure your height in meters (m). Then multiply that number by itself to get a measurement called meters squared. For example, for a person who is 1.75 m tall, the meters squared measurement is 1.75 m x 1.75 m, which is equal to 3.1 meters squared. 3.Divide the number of kilograms (your weight) by the meters squared number. In this example: 70 3.1 = 22.6. This is your BMI. How is BMI interpreted? To interpret your results, your health care provider will use BMI charts to identify whether you are underweight, normal weight, overweight, or obese. The following guidelines will be used: Underweight: BMI less than 18.5. Normal weight: BMI between 18.5 and 24.9. Overweight: BMI between 25 and 29.9. Obese: BMI of 30 and above. Please note: Weight includes both fat and muscle, so someone with a muscular build, such as an athlete, may have a BMI that is higher than 24.9. In cases like these, BMI is not an accurate measure of body fat. To determine if excess body fat is the cause of a BMI of 25 or higher, further assessments may need to be done by a health care provider. BMI is usually interpreted in the same way for men and women. Why is BMI a useful tool? BMI is useful in two ways: Identifying a weight problem that may be related to a medical condition, or that may increase the risk for medical problems. Promoting lifestyle and diet changes in order to reach a healthy weight. Summary Body mass index (BMI) is a number that is calculated from a person's weight and height. BMI may help to estimate how much of a person's weight is composed of fat. BMI can help identify those who may be at higher risk for certain medical problems. BMI can be measured using [place] measurements or metric measurements. To interpret your results, your health care provider will use BMI charts to identify whether you are underweight, normal weight, overweight, or obese. This information is not intended to replace advice given to you by your health care provider. Make sure you discuss any questions you have with your health care provider. Document Released: 04/21/2005 Document Revised: 07/23/2018 Document Reviewed: 06/23/2018 [employer] Patient Education 2020 [employer] 05/22/2022 10:20:44 Sinusitis, Adult Sinusitis, Adult Sinusitis is inflammation of your sinuses. Sinuses are hollow spaces in the bones around your face. Your sinuses are located: Around your eyes. In the middle of your forehead. Behind your nose. In your cheekbones. Mucus normally drains out of your sinuses. When your nasal tissues become inflamed or swollen, mucus can become trapped or blocked. This allows bacteria, viruses, and fungi to grow, which leads to infection. Most infections of the sinuses are caused by a virus. Sinusitis can develop quickly. It can last for up to 4 weeks (acute) or for more than 12 weeks (chronic). Sinusitis often develops after a cold. What are the causes? This condition is caused by anything that creates swelling in the sinuses or stops mucus from draining. This includes: Allergies. Asthma. Infection from bacteria or viruses. Deformities or blockages in your nose or sinuses. Abnormal growths in the nose (nasal polyps). Pollutants, such as chemicals or irritants in the air. Infection from fungi (rare). What increases the risk? You are more likely to develop this condition if you: Have a weak body defense system (immune system). Do a lot of swimming or diving. Overuse nasal sprays. Smoke. What are the signs or symptoms? The main symptoms of this condition are pain and a feeling of pressure around the affected sinuses. Other symptoms include: Stuffy nose or congestion. Thick drainage from your nose. Swelling and warmth over the affected sinuses. Headache. Upper toothache. A cough that may get worse at night. Extra mucus that collects in the throat or the back of the nose (postnasal drip). Decreased sense of smell and taste. Fatigue. A fever. Sore throat. Bad breath. How is this diagnosed? This condition is diagnosed based on: Your symptoms. Your medical history. A physical exam. Tests to find out if your condition is acute or chronic. This may include: ?Checking your nose for nasal polyps. ?Viewing your sinuses using a device that has a light (endoscope). ?Testing for allergies or bacteria. ?Imaging tests, such as an MRI or CT scan. In rare cases, a bone biopsy may be done to rule out more serious types of fungal sinus disease. How is this treated? Treatment for sinusitis depends on the cause and whether your condition is chronic or acute. If caused by a virus, your symptoms should go away on their own within 10 days. You may be given medicines to relieve symptoms. They include: ?Medicines that shrink swollen nasal passages (topical intranasal decongestants). ?Medicines that treat allergies (antihistamines). ?A spray that eases inflammation of the nostrils (topical intranasal corticosteroids). ?Rinses that help get rid of thick mucus in your nose (nasal saline washes). If caused by bacteria, your health care provider may recommend waiting to see if your symptoms improve. Most bacterial infections will get better without antibiotic medicine. You may be given antibiotics if you have: ?A severe infection. ?A weak immune system. If caused by narrow nasal passages or nasal polyps, you may need to have surgery. Follow these instructions at home: Medicines Take, use, or apply gjyu-xzh-ldtovnj and prescription medicines only as told by your health care provider. These may include nasal sprays. If you were prescribed an antibiotic medicine, take it as told by your health care provider. Do not stop taking the antibiotic even if you start to feel better. Hydrate and humidify Drink enough fluid to keep your urine pale yellow. Staying hydrated will help to thin your mucus. Use a cool mist humidifier to keep the humidity level in your home above 50%. Inhale steam for 10 15 minutes, 3 4 times a day, or as told by your health care provider. You can do this in the bathroom while a hot shower is running. Limit your exposure to cool or dry air. Rest Rest as much as possible. Sleep with your head raised (elevated). Make sure you get enough sleep each night. General instructions Apply a warm, moist washcloth to your face 3 4 times a day or as told by your health care provider. This will help with discomfort. Wash your hands often with soap and water to reduce your exposure to germs. If soap and water are not available, use hand clay preparation supervisor. Do not smoke. Avoid being around people who are smoking (secondhand smoke). Keep all follow-up visits as told by your health care provider. This is important. Contact a health care provider if: You have a fever. Your symptoms get worse. Your symptoms do not improve within 10 days. Get help right away if: You have a severe headache. You have persistent vomiting. You have severe pain or swelling around your face or eyes. You have vision problems. You develop confusion. Your neck is stiff. You have trouble breathing. Summary Sinusitis is soreness and inflammation of your sinuses. Sinuses are hollow spaces in the bones around your face. This condition is caused by nasal tissues that become inflamed or swollen. The swelling traps or blocks the flow of mucus. This allows bacteria, viruses, and fungi to grow, which leads to infection. If you were prescribed an antibiotic medicine, take it as told by your health care provider. Do not stop taking the antibiotic even if you start to feel better. Keep all follow-up visits as told by your health care provider. This is important. This information is not intended to replace advice given to you by your health care provider. Make sure you discuss any questions you have with your health care provider. Document Released: 08/10/2006 Document Revised: 01/10/2019 Document Reviewed: 01/10/2019 [employer] Patient Education [facility] Follow Up Care 05/21/2022 12:12:00 With:Charito Redd CNP Address: When: only if needed [facility] Primary Care Evaluation + Plan note Note Date & Type Note Facility Evaluation + Plan note No data available for this section [facility] Primary Care Evaluation note Note Date & Type Note Facility Evaluation note No assessment information [facility] Work Phone: Hospital Discharge instructions Note Date & Type Note Facility Hospital Discharge instructions No data available for this section [facility] Progress note Note Date & Type Note Facility Progress note No data available for this section [facility] Primary Care Summary Purpose Family History Relationship Condition Age at Onset Recorded Date/T westley maternal grandmother Malignant neoplasm Unknown paternal grandfather Malignant neoplasm Unknown Diabetes mellitus Unknown Hypertension Unknown father Diabetes mellitus Unknown Advance Directives Advance Directive Response Recorded Date/ Time Advance Directives No March 17 9:22am Chief Complaint and Reason for Visit Chief Complaint physical, well adult Chief Complaint Admit Date cough, body aches October 27, 2024 10:1 1am Additional Source Comments Care Team (unrecognized sect ion and content) Team Status: Active Member Role Status Dates Jenifer Swartz MD Primary Care Provider Active Team Status: Inactive Member Role Status Dates Jenifer Swartz MD Primary Care Provide r, Attending Provider Active Start: March 22, 2024 End: March 22, 2024 Team Status: Inactive Member Role Status Dates Jenifer Swartz MD Primary Care Provide r, Attending Provider Active Start: October 27, 2024 End: October 27, 2024 (unrecognized sect ion and content) No Status Records FoundNo Status Records Found INFORMATION SOURCE (unrecogn ized section and content) DATE CREATED AUTHOR 09/11/2022 [facility] DATE CREATED AUTHOR AUTHOR'S KIKI KELLEY 06/09/2023 [facility] Goals (unrecognized section and content) Goals may be documented in a n alternate section FOR RECORDS PERTAINING TO PATIENTS WHO ARE OR HAVE BEEN ENROLLED IN A CHEMICAL DEPENDENCY/SUBSTANCEABUSE PROGRAM, SOME INFORMATION MAY BE OMITTED. This clinical summary was aggregated from multiple sources. Caution should be exercised in using it in the provision of clinical care. This summary normalizes information from multiple sources, and as a consequence, information in this document may materially change the coding, format and clinical context of patient data. In addition, data may be omitted in some cases. CLINICAL DECISIONS SHOULD BE BASED ON THE PRIMARY CLINICAL RECORDS. [facility] [employer] [facility]. provides no warranty or guarantee of the accuracy or completeness of information in this document.
--- NOTE | 2025-02-20 12:33 | XR_ITS ---
[facility] [place] [address] Patient Name: NALDO MARQUEZ MRN: [id number] date: 2000 Sex: M Assigned Patient Location: [facility] Current Patient Location: [facility] Accession/Order Number: [id number] Exam Date: 02/20/2025 13:05 Report Date: 02/20/2025 13:07 At the request of: MEERA HEATON DPToni Procedure: XR foot RT min 3V RIGHT FOOT - 3 views CLINICAL HISTORY: Lump first distal metatarsal plantar surface COMPARISON: None FINDINGS: No focal soft tissue abnormality. No acute bony process is seen. Degenerative changes involving the midfoot. No bony erosions. XR/XR foot RT min 3V IMPRESSION: MILD DEGENERATIVE CHANGES INVOLVING THE MIDFOOT. NO ACUTE BONY PROCESS. Impression dictated by: Fili Ramesh Jr., D.O. 02/20/2025 1:07 PM Dictation Location: [place] [address] Electronically authenticated by: [id number] Y Date: 02/20/2025 13:07
--- OUTSIDE RECORDS SUMMARY | 2025-02-20 12:35 | XMS_ITS | Patient Health Record ---
Author Organization [facility] in [place] Address [address] [place] [address] Care Team Providers Care Curriculum Assistant Name Role Phone Jenifer Swartz Primary Care Provider Meera Mosquera [phone] Allergies Allergen (clinical drug ingredient) Drug/Non Drug Allergy documented on EMR Reaction Allergy Type Onset Date Status amoxicillin Amoxicillin hives Drug Allergy Act jannet Results Component Value Reference Range Notes XR Foot RT (3 views) * Reviewed date:03/29/2024 12:15:19 PM Interpretation: Performing Lab: Notes/Report: XR foot JESSICA min 3V (Not yet reviewed by provider) Interpretation: Performing Lab: Notes/Report: Source Facility: [place] [address] XRay Report Signed Patient: Naldo Martines MR#: [id number] : 2000 Acct:[id number] Age/Sex: 24 / M ADM Date: 03/29/24 Loc: [facility] Attending Dr: Meera Moreland D.P.M. Ordering Physician: Meera Moreland D.P.M. Date of Service: 03/29/24 Procedure(s): XR foot JESSICA min 3V Accession Number(s): [id number] cc: Meera Moreland D.P.M.; Physician,Non-Staff [place] [id number] Patient Name: NALDO MARTINES MRN: [id number] date: 2000 Sex: M Assigned Patient Location: EC Current Patient Location: EC Accession/Order Number: [id number] Exam Date: 03/29/2024 11:27 Report Date: 03/30/2024 13:23 At the request of: MEERA MORELAND Procedure: XR foot JESSICA min 3V EXAMINATION: XR foot JESSICA min 3V, XR ankle JESSICA min 3V HISTORY: BILATERAL FOOT PAIN COMPARISON: No relevant comparison available. FINDINGS: RIGHT FINDINGS: BONES: Slight valgus deviation at level of ankle joint. No fracture, dislocation, bone lesion. No joint space narrowing or asymmetry of the joint spaces. SOFT TISSUES: No visible soft tissue swelling. OTHER: Negative. LEFT FINDINGS: BONES: Slight valgus deviation at level of ankle joint. No fracture, dislocation, bone lesion. No joint space narrowing or asymmetry of the joint spaces. Slightly prominent plantar arch. SOFT TISSUES: No visible soft tissue swelling. OTHER: Negative. XR/XR foot JESSICA min 3V IMPRESSION: RIGHT CONCLUSION: No acute abnormality or significant degenerative changes. LEFT CONCLUSION: No acute abnormality or significant degenerative changes. Prominent arch. Electronically authenticated by: CRISTOPHER RICK Date: 03/30/2024 13:23 Dictated By: Cristopher Rick M.D. Signed By: 03/30/24 1326 DD/ 1323 TD/TT: Operating Room Technician: [place] [address] XRay Report Signed Patient: Gilbert Martines MR#: [id number] : 2000 Acct:[id number] Age/Sex: 24 / M ADM Date: 03/29/24 Loc: [facility] Attending Dr: Meera Moreland D.P.M. Ordering Physician: Meera Moreland D.P.M. Date of Service: 03/29/24 Procedure(s): XR foot JESSICA min 3V Accession Number(s): [id number] cc: Meera Moreland D.P.M.; Physician,Non-Staff [place] [id number] Patient Name: NALDO MARTINES MRN: [id number] date: 2000 Sex: M Assigned Patient Location: EC Current Patient Location: EC Accession/Order Numb er: [id number] Exam Date: 03/29/2024 11:27 Report Date: 03/30/2024 13:23 At the request of: MEERA MORELAND Procedure: XR foot JESSICA min 3V EXAMINATION: XR foot JESSICA min 3V, XR ankle JESSICA min 3V HISTORY: BILATERAL FOOT PAIN COMPARISON: No relev ant comparison available. FINDINGS: RIGHT FINDINGS: BONES: Slight valgus deviation at level of ankle joint. No fracture, dislocation, bone le juana. No joint space narrowing or asymmetry of the joint spaces. SOFT TISSUES: No vis ible soft tissue swelling. OTHER: Negative. LEFT FINDINGS: BONES: Slight valgus deviation at level of ankle joint. No fracture, dislocation, bone le juana. No joint space narrowing or asymmetry of the joint spaces. Slightly pro minent plantar arch. SOFT TISSUES: No vis ible soft tissue swelling. OTHER: Negative. X R/XR foot JESSICA min 3V IMPRESSION: RIGHT CONCLUSION: No acute abnormality or significant degenerative changes. LEFT CONCLUSION: No acute abnormality or significant degenerative changes. Prominent arch. Electronically authe nticated by: CRISTOPHER RICK Date: 03/30/2024 13:23 Dictated By: Cristopher Rick M.D. Signed By: 03/30/24 1326 DD/ 1323 TD/TT: Operating Room Technician: XR ankle JESSICA min 3V (Not yet reviewed by provider) Interpretation: Performing Lab: Notes/Report: Source Facility: [place] [address] XRay Report Signed Patient: Naldo Martines MR#: [id number] : 2000 Acct:[id number] Age/Sex: 24 / M ADM Date: 03/29/24 Loc: [facility] Attending Dr: Meera Moreland D.P.M. Ordering Physician: Meera Moreland D.P.M. Date of Service: 03/29/24 Procedure(s): XR ankle JESSICA min 3V Accession Number(s): [id number] cc: Meera Moreland D.P.M.; Physician,Non-Staff [facility] [place] [address] Patient Name: NALDO MARTINES MRN: [id number] date: 2000 Sex: M Assigned Patient Location: Current Patient Location: Accession/Order Number: [id number] Exam Date: 03/29/2024 11:21 Report Date: 03/30/2024 13:23 At the request of: MEERA MORELAND Procedure: XR ankle JESSICA min 3V EXAMINATION: XR foot JESSICA min 3V, XR ankle JESSICA min 3V HISTORY: BILATERAL FOOT PAIN COMPARISON: No relevant comparison available. FINDINGS: RIGHT FINDINGS: BONES: Slight valgus deviation at level of ankle joint. No fracture, dislocation, bone lesion. No joint space narrowing or asymmetry of the joint spaces. SOFT TISSUES: No visible soft tissue swelling. OTHER: Negative. LEFT FINDINGS: BONES: Slight valgus deviation at level of ankle joint. No fracture, dislocation, bone lesion. No joint space narrowing or asymmetry of the joint spaces. Slightly prominent plantar arch. SOFT TISSUES: No visible soft tissue swelling. OTHER: Negative. XR/XR ankle JESSICA min 3V IMPRESSION: RIGHT CONCLUSION: No acute abnormality or significant degenerative changes. LEFT CONCLUSION: No acute abnormality or significant degenerative changes. Prominent arch. Electronically authenticated by: CRISTOPHER RICK Date: 03/30/2024 13:23 Dictated By: Cristopher Rick M.D. Signed By: 03/30/24 1326 DD/ 1323 TD/TT: Operating Room Technician: [place] [address] XRay Report Signed Patient: Gilbert Martines MR#: [id number] : 2000 Acct:[id number] Age/Sex: 24 / M ADM Date: 03/29/24 Loc: [facility] Attending Dr: Meera Moreland D.P.M. Ordering Physician: Meera Moreland D.P.M. Date of Service: 03/29/24 Procedure(s): XR ank le JESSICA min 3V Accession Number(s): [id number] cc: Meera Moreland D.P.M.; Physician,Non-Staff MDomenica [facility] [place] [id number] Patient Name: NALDO MARTINES MRN: [id number] date: 2000 Sex: M Assigned Patient Location: Current Patient Location: Accession/Order Numb er: [id number] Exam Date: 03/29/2024 11:21 Report Date: 03/30/2024 13:23 At the request of: MEERA MORELAND Procedure: XR ankle JESSICA min 3V EXAMINATION: XR foot JESSICA min 3V, XR ankle JESSICA min 3V HISTORY: BILATERAL FOOT PAIN COMPARISON: No relev ant comparison available. FINDINGS: RIGHT FINDINGS: BONES: Slight valgus deviation at level of ankle joint. No fracture, dislocation, bone le juana. No joint space narrowing or asymmetry of the joint spaces. SOFT TISSUES: No vis ible soft tissue swelling. OTHER: Negative. LEFT FINDINGS: BONES: Slight valgus deviation at level of ankle joint. No fracture, dislocation, bone le juana. No joint space narrowing or asymmetry of the joint spaces. Slightly pro minent plantar arch. SOFT TISSUES: No vis ible soft tissue swelling. OTHER: Negative. X R/XR ankle JESSICA min 3V IMPRESSION: RIGHT CONCLUSION: No acute abnormality or significant degenerative changes. LEFT CONCLUSION: No acute abnormality or significant degenerative changes. Prominent arch. Electronically authe nticated by: CRISTOPHER RICK Date: 03/30/2024 13:23 Dictated By: Cristopher Rick M.D. Signed By: 03/30/24 1326 DD/ 1323 TD/TT: Operating Room Technician: Reason For Referral No Information Medications Medication SIG (Take, Route, Fr equency, Duration) Notes Start Date End Date Status Meloxicam 15 MG 1 tablet Orally Once a day for 30 days 03/29/2024 Active Social History Tobacco Use: Social History Observation Description Date Details (start date - stop date) Never Smoker NA - NA Tobacco Control (Standard) Question Answer Notes Tobacco use: Nonsmoker Problems Problem Type SNOMED Code ICD Code Onset Dates Problem Status W/U Status Risk Notes Problem 9830234656753494 Primary osteoarthritis , right ankle and foot (M19.071) Active confirmed Problem 914936635 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) Active confirmed Problem 126573489 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) Active confirmed Problem Arthralgia of the ankle and/or foot (818764969) Pain in right ankle and joints of right foot (M25.571) Active confirmed Problem Arthralgia of the ankle and/or foot (177619827) Pain in left ankle and joints of left foot (M25.572) Active confirmed Problem 501797713 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 Vital Signs Heart Rate 94 /min 05/10/2024 Temperature 97.6 degrees Fahrenheit 05/10/2024 Oximetry 97.6 % 05/10/2024 Height 74 in 05/10/2024 Weight 206 lbs 05/10/2024 BMI 26.45 kg/m2 05/10/2024 Encounters Encounter Location Date Provider Diagnosis [facility] (POD[facility]) [address] [place] [address] [place] [address] 03/29/2024 Meera Moreland Primary osteoarthritis, right ankle and foot M19.071 ; Other acquired deformities of right foot M21.6X1 ; Other specified congenital deformities of feet Q66.89 ; Other acquired deformities of left foot M21.6X2 ; Achilles tendinitis, left leg M76.62 ; Pain in left ankle and joints of left foot M25.572 and Pain in right ankle and joints of right foot M25.571 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 His most significant issue is his right foot which has limited range of motion and advanced arthritis. I recommended nonsurgical treatment given that he is still able to play softball and flag football on a weekly basis. I briefly discussed his potential need for surgery but recommended when he is having a lot more difficulty then I would consider performing triple arthrodesis but this time I recommended an ASO ankle brace when he is active as well as meloxicam to be taken as needed. He will follow-up in 6 weeks call sooner if needed no new x-rays are needed at follow-up 03/29/2024 Other acquired deformities of right foot (ICD-10 - M21.6X1) 05/10/2024 Achilles tendinitis, left leg (ICD-10 - [...] deformities of right foot (ICD-10 - M21.6X1) 03/29/2024 Other specified congenital deformities of feet (ICD-10 - Q66.89) 03/29/2024 Other acquired deformities of left foot (ICD-10 - M21.6X2) 05/10/2024 Other acquired deformities of left foot (ICD-10 - M21.6X2) 03/29/2024 Achilles tendinitis, left leg (ICD-10 - M76.62) Patient also has mild intermittent Achilles tendinopathy and I recommended nonsurgical treatment with home stretching program and a handout was provided as well as RICE therapy. I recommended massage and if his symptoms worsen may consider physical therapy 03/29/2024 Pain in left ankle and joints of left foot (ICD-10 - M25.572) 03/29/2024 Pain in right ankle and joints of right foot (ICD-10 - M25.571) Plan Of Treatment Pending Test Test Name Order Date XR Ankle LT (3 views) * (164) 03/29/2024 XR Ankle RT (3 views) * (161) 03/29/2024 XR Foot LT (3 views) * 03/29/2024 XR ankle JESSICA min 3V 03/30/2024 XR foot JESSICA min 3V 03/30/2024 Insurance Providers Payer Name Payer Address Payer Phone Subscriber Number Group Number Insured Name Patient Relationship to Insured Coverage Start Date Coverage End Date [employer] OUT OF STATE [address] [place] [address] [id number] Naldo Martines Self - patient is the insured Medical (General) History Medical History History ICD Code history of club foot Surgical History Surgery Date(Month/Year) club feet tonsils Hospitalization History Reason Date(Month/Year) tonsils club feet
== END 2025-02-20 12:34 | disposition home or self-care (01) ==
LOC: RAD 12:33
PROVIDERS: Visit Provider Podiatrist Foot & Ankle Surgery
DX: M79.671 Pain in right foot (principal); M19.071 Primary osteoarthritis, right ankle and foot
CPT/HCPCS: 73630